=== PATIENT | female | born 1940 | race Caucasian/White ===

== ENCOUNTER → 2018-03-03 09:34 | Outpatient (CLI) | payer OTHER, SELFPAY ==
[2018-03-03 10:24] LABS: Alanine Aminotransferase 53 IU/L (9-52); Aspartate Aminotransferase 43 IU/L (14-36); BUN Creatinine Ratio 22.5 (6-22); Blood Urea Nitrogen 18 mg/dL (7-17); Calcium 9.4 mg/dL (8.4-10.2); Carbon Dioxide 32 mmol/L (22-32); Chloride 104 mmol/L (98-107); Cholesterol 310 mg/dL (140-199); Estimated Glomerular Filt Rate > 60.0 mL/min (>60); Glucose 95 mg/dL (80-110); HDL Cholesterol 60 mg/dL (40-60); HEMOLYSIS < 15 (0-50); LDL Cholesterol Calculated 208 mg/dL (<100); Potassium 4.6 mmol/L (3.4-5.1); Sodium 144 mmol/L (137-145); Triglycerides 211 mg/dL (35-150)
== END ==
PROVIDERS: PCP Internal Medicine; Visit Provider Internal Medicine
DX: Z00.00 Encounter for general adult medical examination without abnormal findings (principal); E78.5 Hyperlipidemia, unspecified
CPT/HCPCS: 36415; 80048; 80061; 84450; 84460

== ENCOUNTER → 2018-03-07 14:19 | Outpatient (CLI) | payer OTHER, SELFPAY | PROVIDERS: PCP Internal Medicine; Visit Provider Internal Medicine | DX: M85.852 Other specified disorders of bone density and structure, left thigh (principal); Z78.0 Asymptomatic menopausal state | CPT/HCPCS: 77080 ==

== ENCOUNTER → 2018-03-16 12:48 | Outpatient (CLI) | payer OTHER, SELFPAY ==
--- NOTE | 2018-03-16 | DI.CT.S_ITS ---
PROCEDURE: CT ANGIO CHEST PE PROTOCOL INDICATIONS: CHEST PAIN TECHNIQUE: After the administration of intravenous contrast, 2 mm thick sections acquired from the pulmonary apices to the posterior costophrenic angles. 3-dimensional maximum intensity projection (MIP) coronal and sagittal reformats were then acquired through the thorax. For radiation dose reduction, the following was used: automated exposure control, adjustment of mA and/or kV according to patient size. COMPARISON: [facility], CT, THORAX WITHOUT CONTRAST, 07/28/2017, 11:29. FINDINGS: Image quality: Excellent. Pulmonary arteries: Pulmonary arteries demonstrate no intraluminal filling defects to suggest central pulmonary embolism. Lungs and pleura: There is mild perihilar bronchiectasis with mild bronchial wall thickening. There is also associated new perihilar peribronchial groundglass opacities. Mild linear scarring is redemonstrated bilaterally in the lung bases. No acute focal consolidation. The trachea and central airways appear patent. No pleural effusions or pneumothorax. Mediastinum: Heart size is normal, without pericardial effusion. There are coronary arterial vascular calcifications. No mediastinal or hilar adenopathy. Thoracic aorta is normal in caliber and enhancement. Esophagus is normal in caliber, without hiatal hernia. Bones and chest wall: No suspicious bony lesions. Ribs and thoracic spine appear intact throughout. Thyroid gland demonstrates no discrete nodules. No axillary or supraclavicular adenopathy. Abdomen: Visualized upper abdominal solid organs appear normal in the early arterial phase of enhancement. IMPRESSION: 1. No evidence of pulmonary embolism. 2. Mild perihilar bronchial wall thickening and bronchiectasis with new associated mild glass opacities. The findings are compatible with a nonspecific infectious or inflammatory process including possible atypical pneumonia. Recommend short-term followup to demonstrate resolution following appropriate therapy. Dictated by: Andre Stokes M.D. on 03/16/2018 at 16:39 Approved by: Andre Stokes M.D. on 03/16/2018 at 16:44
== END ==
PROVIDERS: PCP Internal Medicine; Visit Provider Internal Medicine
DX: R07.9 Chest pain, unspecified (principal)
CPT/HCPCS: 71275; Q9967

== ENCOUNTER → 2018-06-08 15:46 | Outpatient (CLI) | payer OTHER, SELFPAY ==
[2018-06-08 16:23] LABS: Add Manual Diff / Slide Review NO; Basophils Percent Auto 0.9 % (0-2); Eosinophils Percent Auto 5.1 % (2-4); Hematocrit 37.6 % (36-46); Hemoglobin 12.6 g/dL (12.0-16.0); Lymphocytes Percent Auto 27.1 % (25-40); Mean Corpuscular HGB Conc 33.5 % (30-36); Mean Corpuscular Hemoglobin 32.4 PG (26-34); Mean Corpuscular Volume 96.6 fL (80-100); Monocytes Percent Auto 6.8 % (3-14); Neutrophils Absolute Auto 3900 /uL (1500-7000); Neutrophils Percent Auto 60.1 % (50-75); Platelet Count 224 X10^3/uL (150-400); Red Blood Cell Count 3.89 X10^6/uL (4.0-5.2); Red Cell Distribution Width 13.1 % (11.6-14.8); White Blood Cell Count 6.5 X10^3/uL (4.5-11.0)
[2018-06-10 19:08] LABS: Immunoglobulin E 1487 kU/L (< 115)
== END ==
PROVIDERS: PCP Internal Medicine; Visit Provider Internal Medicine
DX: R05 Cough (principal)
CPT/HCPCS: 36415; 82785; 85025

== ENCOUNTER 2018-10-27 12:29 | Emergency (ER) | payer OTHER, SELFPAY ==
[2018-10-27 12:41] VITALS: BP 148/89; PULSE 62; RESP 18; TEMP 36.1; O2SAT 93
--- NOTE | 2018-10-27 12:45 | DI.RAD.S_ITS ---
PROCEDURE: XR TIBIA FUBULA RT 2V INDICATIONS: injury TECHNIQUE: 2 views of the tibia and fibula were acquired. COMPARISON: None. FINDINGS: Bones: No fractures or dislocations. No suspicious bony lesions. Soft tissues: No suspicious soft tissue calcifications or masses. IMPRESSION: Normal for age, source of current pain after trauma symptoms is not seen. Dictated by: Sagar Sandhu M.D. on 10/27/2018 at 13:42 Approved by: Sagar Sandhu M.D. on 10/27/2018 at 13:42
--- NOTE | 2018-10-27 13:12 | PC.NURSE ---
pt called to see me. pt expressed she is disappointed in her wait time. I explained that I am sorry for her wait and i know she is in pain and that we are working as quickly as we can to treat her. at that moment Ghazal KENT arrived to take pt for her xray
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
--- NOTE | 2018-10-27 15:15 | DI.US.S_ITS ---
PROCEDURE: US PERIPH VENOUS LOW EXTREM RT INDICATIONS: BLUNT TRAUMA TO CALF, SIGNIFICANT SWELLING AND PAIN TECHNIQUE: Real-time imaging, as well as color and pulse Doppler interrogation, were performed of the lower extremity deep veins from the inguinal ligament to the popliteal fossa. COMPARISON: None. FINDINGS: The common femoral, femoral and popliteal veins are normally compressible, and free of intraluminal thrombus. Color and pulse Doppler demonstrate normal phasic intraluminal flow. There is normal augmentation response to distal compression maneuver. IMPRESSION: 1. No evidence of deep venous thrombosis in the right lower extremity. Dictated by: Andre Stokes M.D. on 10/27/2018 at 15:56 Approved by: Andre Stokes M.D. on 10/27/2018 at 15:56
[2018-10-27 16:18] VITALS: BP 157/76; PULSE 56; RESP 16; O2SAT 95
== END 2018-10-27 16:22 | disposition home or self-care (01) ==
PROVIDERS: Emergency Provider Nurse Practitioner; PCP Internal Medicine
DX: S80.11XA Contusion of right lower leg, initial encounter (principal); W20.8XXA Other cause of strike by thrown, projected or falling object, initial encounter
CPT/HCPCS: 73590; 93971; 99282; 99283

== ENCOUNTER → 2018-12-06 16:49 | Outpatient (CLI) | payer OTHER, SELFPAY ==
[2018-12-06 17:57] LABS: Add Manual Diff / Slide Review NO; Basophils Absolute Auto 0 /uL (0-100); Basophils Percent Auto 0.6 % (0-2); Eosinophils Absolute Auto 500 /uL (0-450); Hematocrit 40.5 % (36-46); Hemoglobin 13.7 g/dL (12.0-16.0); Lymphocytes Absolute Auto 1600 /uL (1100-4500); Lymphocytes Percent Auto 24.8 % (25-40); Mean Corpuscular HGB Conc 33.7 % (30-36); Mean Corpuscular Hemoglobin 32.8 PG (26-34); Mean Corpuscular Volume 97.1 fL (80-100); Monocytes Absolute Auto 700 /uL (0-900); Monocytes Percent Auto 11.2 % (3-14); Neutrophils Absolute Auto 3700 /uL (1500-7000); Neutrophils Percent Auto 56.4 % (50-75); Platelet Count 257 X10^3/uL (150-400); Red Blood Cell Count 4.17 X10^6/uL (4.0-5.2); Red Cell Distribution Width 13.3 % (11.6-14.8); White Blood Cell Count 6.6 X10^3/uL (4.5-11.0)
[2018-12-06 18:24] LABS: Alanine Aminotransferase 68 IU/L (9-52); Albumin 4.6 g/dL (3.5-5.0); Albumin Globulin Ratio 1.4 (1.0-2.8); Alkaline Phosphatase 60 U/L (38-126); Aspartate Aminotransferase 74 IU/L (14-36); BUN Creatinine Ratio 26.3 (6-22); Bilirubin Total 0.3 mg/dL (0.2-1.3); Blood Urea Nitrogen 21 mg/dL (7-17); Calcium 10.2 mg/dL (8.4-10.2); Carbon Dioxide 32 mmol/L (22-32); Chloride 103 mmol/L (98-107); Estimated Glomerular Filt Rate > 60.0 mL/min (>60); Globulin 3.2 g/dL (1.7-4.1); Glucose 101 mg/dL (80-110); HEMOLYSIS < 15 (0-50); Sodium 142 mmol/L (137-145); Total Protein 7.8 g/dL (6.3-8.2)
[2018-12-06 18:27] LABS: Potassium 5.8 mmol/L (3.4-5.1)
== END ==
PROVIDERS: PCP Family Medicine; Visit Provider Family Medicine
DX: K92.1 Melena (principal)
CPT/HCPCS: 36415; 80053; 85025

== ENCOUNTER 2018-12-25 07:26 | Day surgery (SDC) | payer OTHER, SELFPAY ==
[2018-12-25] VITALS (9 sets, daily range): BP systolic 130–157; BP diastolic 64–90; PULSE 50–62; RESP 15–17; TEMP 36.1–36.6; O2SAT 89–96; BMI 27.1
--- NOTE | 2018-12-25 | PATH_ITS ---
[facility] Accession Number: [id number] . 01 Material submitted: . PART A: gastrointestinal site - ANTRUM PART B: esophagus, E-G Junction - BIOPSY GE JUNCTION . 01 Clinical history: . A. BIOPSY FOR H. PYLORI . 02 Diagnosis: A. Antrum, Biopsy: Gastric antral mucosa with minimal chronic gastritis. No evidence of Helicobacter organisms on H/E stain. Negative for intestinal metaplasia, dysplasia or malignancy. . B. Gastroesophageal Junction, Biopsy: Squamocolumnar junctional mucosa with mild reactive features of reflux esophagitis. Negative for specialized intestinal metaplasia, dysplasia or malignancy. [facility]/12/26/2018 . 02 Electronically signed: . Yury Tolbert MD, PhD, Pathologist NPI- [id number] . 01 Gross description: . Part A: ANTRUM: Received in formalin are 2 fragment(s) of rodriguez, soft tissue measuring 0.1 x 0.1 x 0.1 cm to 0.2 x 0.1 x 0.1 cm which is entirely submitted and submitted entirely in 1 cassette(s) Part B: BIOPSY GE JUNCTION: Received in formalin are multiple fragment(s) of rodriguez, soft tissue measuring 0.1 x 0.1 x 0.1 cm to 0.2 x 0.2 x 0.2 cm which is entirely submitted and submitted entirely in 1 cassette(s) /DMC /DMC . 02 Pathologist provided ICD-10: R13.10, K21.9, K29.70 . 02 CPT . 278241, [id number] Performed at: [facility] [address] [place] [address] [address], [place], [place] [id number] MD Andre Sidhu MD Phone: [phone] Performed at: 02 [facility] [place] [address] [place] [id number] MD Jessica Xiong MD Phone: [phone]
[2018-12-25] MEDS: SODIUM CHLORIDE 0.9% 1,000 ML 200 ML IV (08:20)
--- NOTE | 2018-12-25 08:28 | PM.PREOP ---
Pre-operative Note Interval Note History & Physical reviewed/Exam performed by Physician: Yes Changes to H&P: No ASA Class (for procedural sedation): II
[2018-12-25] MEDS: LIDOCAINE 4% SOLN 50 ML 20 ML TOP (08:36)
[2018-12-25] MEDS: TETRACAINE/BENZOCAINE/BUTAMBEN (CETACAINE) BOTTLE 1 SPRAY TOP (08:36)
--- NOTE | 2018-12-25 08:38 | SUR.OPER ---
GLASSES IN LABELED BAG TO PACU WITH PATIENT
[2018-12-25] MEDS: MIDAZOLAM 5 MG/5 ML VIAL IV (08:42)
[2018-12-25] MEDS: fentaNYL 250 MCG/5 ML INJ IV (08:44)
--- NOTE | 2018-12-25 08:48 | PM.OP.ENDO ---
Operative Date/Time/Diagnoses Date of procedure: 12/25/18 Time of procedure: 08:48 Pre-op diagnosis: GERD Post-op diagnosis: same Procedure & Clinicians Study performed: EGD with biopsies Same procedure as scheduled: Yes Surgeon: Rachel Collins Procedure Notes SCOAP/Timeout: 835 Procedure in detail: After obtaining informed consent, the patient was brought to the GI suite and placed in the left lateral decubitus position on the examination table. After placement of appropriate monitors, the patient was given incremental doses of Versed and Fentanyl until an appropriate level of sedation was achieved. A time out was held per SCOAP protocol. A bite block was gently placed between the patient's teeth. The endoscope was lubricated and then passed into the patient's posterior oropharynx. The esophagus was cannulated under direct vision and the scope was passed to the second portion of the duodenum without difficulty. The scope was then withdrawn with careful examination of all areas of the upper GI tract and mucosa. In the stomach, the instrument was retroflexed and the GE junction examined. The scope was straightened and the procedure continued with examination of the remainder of the upper GI tract. Findings include diffuse chronic appearing gastritis noted by smoothed rugae and linear erosions. An antral biopsy is sent for H pylori testing. GEJ was noted to have a small area of salmon colored change, 1cm at maximum extent. Four quadrant biopsies were sent; spacing was difficult due to coughing by patient. In the mid and proximal esophagus, small white nodules are noted on the mucosa. Air was aspirated from the stomach and the endoscope gently removed from the esophagus. The patient was allowed to awaken from sedation without difficulty and taken to the post-anesthesia care unit in good condition. Scope withdrawal time: n/a Sedation minutes: 9 Findings: gastritis Specimen(s): other (1. Antrum biopsy for H pylori 2. GEJ biopsies for salmon colored changes) Complications: none Impression: 1. Gastritis- chronic, diffuse 2. 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 Mid and proximal esophageal mucosa with mild white nodular changes Recommendations: EGD in 3 years (pending path) and Continue medication(s) (take daily rather than prn as she is currently) Follow up: weeks Disposition: PACU
--- NOTE | 2018-12-25 10:05 | SUR.PHASEII ---
Dr. Collins notified regarding arythmia, EKG ordered and done.
--- NOTE | 2018-12-25 10:35 | SUR.PHASEII ---
Dr. Collins reviewed pt ekg reading at bedside. Per Dr. Collins ok for pt to be discharged to home at this time. Pt instructed to call pcp and make appt to follow up to discuss ekg from today. Pt voiced understanding.
--- NOTE | 2018-12-25 11:47 | PM.EVENT ---
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 Normal BP, breathing and speaking comfortably. Will review and plan for FU with PCP, pt told to call for appointment.
--- NOTE | 2018-12-25 11:48 | P.EN_ITS ---
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 Normal BP, breathing and speaking comfortably. Will review and plan for FU with PCP, pt told to call for appointment.
== END 2018-12-25 10:41 | disposition home or self-care (01) ==
PROVIDERS: PCP Family Medicine; Visit Provider Surgery
PROC: 0DJ08ZZ Inspection of Upper Intestinal Tract, Via Natural or Artificial Opening Endoscopic (ICD-10-PCS; CPT 43235; principal; 2018-12-25 08:45)
DX: K21.9 Gastro-esophageal reflux disease without esophagitis (principal); R13.10 Dysphagia, unspecified; K29.70 Gastritis, unspecified, without bleeding
CPT/HCPCS: 43239; 93005; J2250; J3010

== ENCOUNTER 2019-04-06 13:59 | Emergency (ER) | payer OTHER, SELFPAY ==
[2019-04-06 14:01] VITALS: BP 154/74; PULSE 68; RESP 16; TEMP 37.1; O2SAT 97; BMI 25.8
--- NOTE | 2019-04-06 14:03 | DI.RAD.S_ITS ---
PROCEDURE: XR WRIST RT MIN 3V INDICATIONS: fall onto right wrist TECHNIQUE: 4 views of the wrist were acquired. COMPARISON: None. FINDINGS: Bones: There is a comminuted, intra-articular fracture of the distal radial metaphysis. No suspicious bony lesions. There is moderate to severe first carpometacarpal joint degeneration. Scaphoid view: Scaphoid appears intact Soft tissues: No suspicious soft tissue calcifications. IMPRESSION: Comminuted intra-articular distal radial metaphyseal fracture. Dictated by: Noam Leavitt M.D. on 04/06/2019 at 15:06 Approved by: Noam Leavitt M.D. on 04/06/2019 at 15:07
--- NOTE | 2019-04-06 14:22 | PC.NURSE ---
Pt has pain and limited ROM
[2019-04-06] MEDS: IBUPROFEN 400 MG TABLET 800 MG PO (14:59)
[2019-04-06] MEDS: ACETAMINOPHEN 325 MG TABLET 650 MG PO (14:59)
--- NOTE | 2019-04-06 15:26 | ED.UPPEXIN ---
HPI - Extremity Injury (Upper) <YOHANNES Burns - Last Filed: 04/06/19 18:01> General Chief Complaint: Extremity Injury, Upper Stated Complaint: fell 'may have broken wrist' Time Seen by Provider: 04/06/19 14:05 Source: patient Mode of arrival: Ambulatory Limitations: no limitations History of Present Illness HPI narrative: This is a 78-year-old female, nonsmoker, who presents to ED with her spouse with chief complain of right wrist and distal ulna pain. She tripped and fall when she was coming down on a small stool in a shed, she states her foot got tangled and lost balance and she landed right on top of her right wrist/hand. Patient reports significant discomfort with movement of affected hand. Patient reports intact sensation. Right dominant hand. Patient denies skin injuries to this area and denies other injuries such as hitting her head. She denies pain in her right elbow or shoulder. She denies taking anticoagulants or platelets at this time. Related Data Previous Rx's Medication Instructions Recorded omeprazole 20 mg capsule,delayed 20 mg PO DAILY #90 cap 01/18/19 release hydrocodone-acetaminophen [[place]] 1 tab PO Q8H PRN #14 tab 04/06/19 Allergies Allergy/AdvReac Type Severity Reaction Status Date / Time No Known Drug Allergies Allergy Verified 04/06/19 14:03 Review of Systems <YOHANNES Burns - Last Filed: 04/06/19 18:01> Review of Systems Narrative: General: Denies fever, chills, fatigue, malaise, sweats. HEENT: Denies sinus pain, ear pain, sore throat, difficulty swallowing, dizziness. Respiratory: Denies dyspnea, cough, wheezing, hemoptysis, sputum. Cardiovascular: Denies chest pain, palpitations, orthopnea, edema. Gastrointestinal: Denies nausea, vomiting, abdominal pain, diarrhea, constipation, melena. : Denies dysuria, frequency, incontinence, hematuria, urinary retention. Musculoskeletal: See HPI Skin: Denies rash, skin lesions, or other. Neurologic: Denies weakness, headache, numbness, change in speech, confusion, seizures, incoordination. Psychiatric: No concerning psychosocial issues. 12-point review of systems is negative except for those stated above. Patient History <YOHANNES Burns - Last Filed: 04/06/19 18:01> Surgical History H/O left wrist surgery (Acute) Status post appendectomy Status post cholecystectomy Social History household members: spouse Smoking Status: Never smoker alcohol intake frequency: 0-2 drinks per day Substance Use Type: does not use Exam <YOHANNES Burns - Last Filed: 04/06/19 18:01> Narrative Exam Narrative: General appearance: well developed, well nourished, in no acute distress. Head: normocephalic, atraumatic, no scalp lesions, non-tender. Eye: pupil equal, round. EOMI. Nose: nares patent. Oral: mucosa moist. Neck/Thyroid: neck supple, full range of motion, no visible masses. Skin: no suspicious rashes, lesions over visible areas. Warm and dry. Heart: no clubbing, no cyanosis, no edema. Lungs: Breathing even and unlabored. No stridor. No accessory muscles used. Chest: normal shape and expansion. Abdomen: non-obese, non-distended. Neurologic: alert and oriented. Cognitive exam, METAL TESTER and PNS grossly intact on informal exam. Psych: good eye contact, normal affect. Initial Vital Signs Initial Vital Signs: Vital Signs Temperature 98.8 F 04/06/19 14:01 Pulse Rate 68 04/06/19 14:01 Respiratory Rate 16 04/06/19 14:01 Blood Pressure 154/74 H 04/06/19 14:01 Pulse Oximetry 97 04/06/19 14:01 Extrem Right upper extremity: shoulder/upper arm, elbow/forearm Details: normal to inspection and normal ROM, wrist Details: normal to inspection, tenderness Location: of the distal ulna and of the dorsal wrist, abnormal ROM Details: pain with active ROM during and pain with passive ROM during, radial pulse present and ulnar pulse present; no unusual warmth, no abrasions and no lacerations and hand Details: neuromotor exam normal, vascular exam Details: radial pulse present and normal capillary refill and normal ROM of fingers Left upper extremity: normal to inspection and full ROM <Nedra Barba DO - Last Filed: 04/07/19 07:31> Initial Vital Signs Initial Vital Signs: Vital Signs Temperature 98.8 F 04/06/19 14:01 Pulse Rate 68 04/06/19 14:01 Respiratory Rate 16 04/06/19 14:01 Blood Pressure 154/74 H 04/06/19 14:01 Pulse Oximetry 97 04/06/19 14:01 Procedures <YOHANNES Burns - Last Filed: 04/06/19 18:01> Orthopedic Splinting/Casting Injury #1: Side: right Upper Extremity Injury Location: wrist Upper Extremity Immobilizer: sling/shoulder immobilizer and volar splint Post splinting neuro exam: intact Post splinting vascular exam: intact Placed by: Nursing Scores <YOHANNES Burns - Last Filed: 04/06/19 18:01> GCS Alcova coma scale eye opening: Spontaneous Alcova coma scale verbal response: Orientated Alcova coma scale motor response: Obey commands Justine coma scale total score: 15 Nexus Score for C-Spine Focal Neurologic deficit present: No Midline spinal tenderness present: No Altered level of conciousness present: No Intoxication present: No Distracting Injury Present: Yes Nexus Criteria for C-spine: 1 Course <YOHANNES Burns - Last Filed: 04/06/19 18:01> Orders Ordered: Discontinued Medications Acetaminophen (Tylenol) 650 mg PO NOW ONE Stop: 04/06/19 14:48 Last Admin: 04/06/19 14:59 Dose: 650 mg Documented by: RAYMUNDO Hydrocodone Bitart/Acetaminophen ([place] 5/325) 1 tab PO NOW ONE Stop: 04/06/19 15:41 Last Admin: 04/06/19 15:44 Dose: 1 tab Documented by: TRUPTI Ibuprofen (Advil) 800 mg PO NOW ONE Stop: 04/06/19 14:48 Last Admin: 04/06/19 14:59 Dose: 800 mg Documented by: RAYMUNDO Vital Signs Vital signs: Vital Signs - 8 hr 04/06/19 14:01 04/06/19 16:05 Temperature 98.8 F Pulse Rate 68 68 Respiratory Rate 16 18 Blood Pressure 154/74 H Pulse Oximetry 97 98 <Nedra Barba DO - Last Filed: 04/07/19 07:31> Orders Ordered: Discontinued Medications Acetaminophen (Tylenol) 650 mg PO NOW ONE Stop: 04/06/19 14:48 Last Admin: 04/06/19 14:59 Dose: 650 mg Documented by: RAYMUNDO Hydrocodone Bitart/Acetaminophen ([place] 5/325) 1 tab PO NOW ONE Stop: 04/06/19 15:41 Last Admin: 04/06/19 15:44 Dose: 1 tab Documented by: TRUPTI Ibuprofen (Advil) 800 mg PO NOW ONE Stop: 04/06/19 14:48 Last Admin: 04/06/19 14:59 Dose: 800 mg Documented by: RAYMUNDO Vital Signs Vital signs: Vital Signs - 8 hr 04/06/19 14:01 04/06/19 16:05 Temperature 98.8 F Pulse Rate 68 68 Respiratory Rate 16 18 Blood Pressure 154/74 H Pulse Oximetry 97 98 MDM - Extremity Injury (Upper) <YOHANNES Burns - Last Filed: 04/06/19 18:01> Differential Diagnosis Differential diagnosis: Likely sprain and strain of wrist, fracture of wrist and other (Fracture of distal ulna, sprain of forearm, sprain of wrist) Medical Records Attestation: I reviewed the patient's medical records. Imaging Data XR-Wrist RT: Radiologist's impression: [place] [address] XRay Report Signed Patient: Jennifer Chaudhry EMR#: [id number] : 1Acct:[id number] Age/Sex: 78 / FDate of Service: 04/06/19 Loc: ED Accession Number: [id number] Procedure: XR wrist RT min 3V Ordering Provider: Nedra Barba D.O. PROCEDURE: XR WRIST RT MIN 3V INDICATIONS: fall onto right wrist TECHNIQUE: 4 views of the wrist were acquired. COMPARISON: None. FINDINGS: Bones: There is a comminuted, intra-articular fracture of the distal radial metaphysis. No suspicious bony lesions. There is moderate to severe first carpometacarpal joint degeneration. Scaphoid view: Scaphoid appears intact Soft tissues: No suspicious soft tissue calcifications. IMPRESSION: Comminuted intra-articular distal radial metaphyseal fracture. Dictated by: Noam Leavitt M.D. on 04/06/2019 at 15:06 Approved by: Noam Leavitt M.D. on 04/06/2019 at 15:07 [facility] Narrative Medical decision making narrative: This is a 78 year female who had sustain a right wrist/distal ulna injury after she sustained a fall after her foot got tangled and lost balance. She denies other injuries or hitting her head. Patient had decreased active and passive range of motion due to discomfort. Radial pulse is intact with brief cap refills on right hand. Patient had intact sensation for light touch. X-ray test shows communited intra-articular distal radial metaphyseal fracture and affected arm was splinted with a volar Orthoglass splint. Post splint neurovascular exam was intact. Patient advised RICE therapy. Patient was medicated with Tylenol, Motrin, 1 Mendham while in ED and was able to tolerate splint procedure. Patient discharged to home with same medications. Patient advised to contact [facility] orthopedist to follow up with her fracture and treatment. Patient verbalized understanding and no questions expressed at this time and agrees with the treatment plan. Patient states she was leaving for cruise travel on Tuesday to [place] which she is going to cancel and to follow up with orthopedist. Discharge Plan Departure Patient Disposition: Home Clinical Impression: Fracture of wrist, closed Qualifiers: Encounter type: initial encounter Laterality: right Qualified Code(s): S62.101A - Fracture of unspecified carpal bone, right wrist, initial encounter for closed fracture Discharge Date/Time: 04/06/19 16:06 Instructions: DI for Wrist Fracture Activity Restrictions/Additional Instructions: You have been diagnosed with [right wrist comminuted, intra-articular fracture of the distal radial metaphysis according to the xray test today. Your arm/wrist has been splinted on Ortho Glass. Please elevate affected arm above chest level during rest and use a sling that has been provided to you and use ice pack for next 48 hours. Please do not get wet your splint and keep it on all time]. What to do: *Take your medications as directed. Mendham may cause drowsiness so please do not drive, drink alcohol, or operate any heavy equipments while you are taking this medication for severe pain. Otherwise you can take [id number] Tylenol and or Motrin as needed for discomfort. You can take up to 4000 mg of Tylenol in 24 hour period. Motrin 4-600 mg 3 times a day with food. Mendham could cause constipation so please increase water intake, high-fiber diet, or add [id number] stool softener. *Follow up with your primary care provider in 2-3 days, call for an appointment and [facility]. Let them know you were seen in the ED and that we asked you to be seen in follow up. *Return to ED if you have any new, worsening, or concerning symptoms, such as [tingling, numbness, weakness to affected arm, severe pain, chest pain, breathing difficulty, or any acute concerns]. Prescriptions: New hydrocodone-acetaminophen [[place]ham] 5-325 mg tablet 1 tab PO Q8H PRN (Reason: pain) Qty: 14 RF: 0 No Action omeprazole 20 mg capsule,delayed release(DR/EC) 20 mg PO DAILY Qty: 90 RF: 0 Referrals: [facility] [Provider Group] Renetta Miranda DO [Primary Care Provider] -
[2019-04-06] MEDS: HYDROCODONE/ACET 5/325 TABLET 1 TAB PO (15:44)
[2019-04-06 16:05] VITALS: PULSE 68; RESP 18; O2SAT 98
== END 2019-04-06 16:06 | disposition home or self-care (01) ==
PROVIDERS: Emergency Provider Nurse Practitioner Family; PCP Family Medicine
DX: S62.101A Fracture of unspecified carpal bone, right wrist, initial encounter for closed fracture (principal); W01.0XXA Fall on same level from slipping, tripping and stumbling without subsequent striking against object, initial encounter
CPT/HCPCS: 29125; 73110; 99283

== ENCOUNTER 2019-06-02 14:13 | Observation (INO) | payer OTHER, SELFPAY ==
[2019-06-02] VITALS (14 sets, daily range): BP systolic 139–219; BP diastolic 60–95; PULSE 60–77; RESP 16–22; TEMP 36.3–36.8; O2SAT 94–98; BMI 26.6
--- NOTE | 2019-06-02 14:21 | ED_ITS ---
HPI - Neuro Symptoms/Deficit General Chief Complaint: Neuro Symptoms/Deficit Stated Complaint: poss stroke Time Seen by Provider: 06/02/19 14:15 Source: patient Mode of arrival: Wheelchair Limitations: no limitations History of Present Illness HPI Narrative: Patient is a 78-year-old female who presents with speech d ifficulty now resolved. She was at lunch with her who noticed that approximately 30 minutes prior to arrival she had difficulty speaking he did not understand her there was no facial droop there is no weakness numbness or tingling. Symptoms lasted until she got to the emergency department which have now completely cleared. No prior history of TIA or stroke. She now is having headache. Onset (ago): minute(s) Timing confirmed by: spouse Location: speech History of same: No Severity: mild Related Data Previous Rx's Medication Instructions Recorded omeprazole 20 mg capsule,delayed 20 mg PO DAILY #90 cap 01/18/19 release hydrocodone-acetaminophen [[place]] 1 tab PO Q8H PRN #14 tab 04/06/19 Allergies Allergy/AdvReac Type Severity Reaction Status Date / Time No Known Drug Allergies Allergy Verified 06/02/19 14:23 Review of Systems Review of Systems Narrative: GENERAL: Denies chills, fatigue, malaise, fever, sweats, travel HEENT: Denies sinus pain, ear pain, sore throat, difficulty swallowing, neck pain RESPIRATORY: Denies dyspnea, cough, wheezing, hemoptysis, sputum. CARDIOVASCULAR: Denies chest pain, palpitations, orthopnea, edema GASTROINTESTINAL: Denies nausea, vomiting, abdominal pain, diarrhea, constipation, melena. : Denies dysuria, frequency, incontinence, hematuria, urinary retention, flank pain. MUSCULOSKELETAL: Denies weakness, joint pain, or bony pain SKIN: No rash, no erythema, no pruritus NEUROLOGIC: See HPI PSYCHIATRIC: No concerning psychosocial issues. 12 point review of systems is negative except for those stated above and HPI Patient History Medical History Borderline 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) Gastritis (Acute) Surgical History H/O left wrist surgery (Acute) Status post appendectomy Status post cholecystectomy Social History household members: spouse Smoking Status: Never smoker Smoking Status: Never smoker alcohol intake frequency: 0-2 drinks per day Substance Use Type: does not use Exam Initial Vital Signs Initial Vital Signs: Vital Signs Pulse Rate 75 06/02/19 14:20 Respiratory Rate 18 06/02/19 14:20 Blood Pressure 178/62 H 06/02/19 14:20 Pulse Oximetry 97 06/02/19 14:20 GENERAL: Well-appearing, well-nourished and in no acute distress. HEENT: Head atraumatic,EOMI, pupils reactive, face symmetric, moist mucous membranes CARDIOVASCULAR: Regular rate and rhythm without murmurs, rubs or gallops. RESPIRATORY: Breath sounds equal bilaterally, no wheezes rales or rhonchi. ABDOMEN: Soft, nontender. Normoactive bowel sounds all 4 quadrants. No guarding or rebound. EXTREMITIES: Normal range of motion, no clubbing or edema. Neurovascularly intact NEUROLOGICAL: Alert and oriented x4.Normal gait and speech. Cranial nerves II through XII grossly intact. Good [id number]-dj-nhra, good brig-pn-pzan, strength equal bilaterally, no dysarthria or aphasia, sensation in tact to soft touch bilaterally, no visual changes, no facial droop SKIN: Warm, dry, no laceration, no petechiae, no rashes or lesions. Scores NIH Stroke Scale Level of Conciousness: Alert, keenly responsive Ask month/age: Answers both questions correctly. Open/close eyes, close hand: Performs both tasks correctly Best gaze horizontal: Normal Visual nichols: No visual loss Facial palsy: Normal symetrical movement Left arm drift: No drift for full 10 sec Right arm drift: No drift for full 10 sec Left leg drift: No drift for full 10 sec Right leg drift: No drift for full 10 sec Limb ataxia: Absent Sensory on face/arms/legs: Normal, no sensory loss Best language: No aphasia, normal Dysarthria: Normal Extinction or inattention: No abnormality Total NIH Stroke scale score: 0 Course Orders Ordered: ED Orders 06/02/19 14:21 CT head/brain wo con Stat EKG-12 Lead Stat 06/02/19 14:38 Complete Blood Count AUTO DIFF Stat Comprehensive Metabolic Panel Stat Partial Thromboplastin Time Stat Prothrombin Time INR Stat Troponin & CK Cardiac Panel Stat Sodium Chloride (Normal Saline 0.9%) 1,000 mls @ 150 mls/hr IV CONT EDUIN Last Admin: 06/02/19 16:05 Dose: 150 mls/hr Documented by: ERIN Discontinued Medications Acetaminophen (Tylenol) 975 mg PO NOW ONE Stop: 06/02/19 16:39 Aspirin (Aspirin Chew) 324 mg PO NOW ONE Stop: 06/02/19 15:29 Last Admin: 06/02/19 16:05 Dose: 324 mg Documented by: ERIN Labetalol HCl (Trandate) 10 mg IV NOW ONE Stop: 06/02/19 16:45 Vital Signs Vital signs: Vital Signs - 8 hr 06/02/19 14:20 06/02/19 16:04 06/02/19 16:30 Pulse Rate 75 64 68 Respiratory Rate 18 19 20 Blood Pressure 178/62 H Blood Pressure [Left Arm] 193/83 H 209/95 H Pulse Oximetry 97 98 97 MDM - Neuro Symptoms/Deficit Lab Data Attestation: I reviewed the patient's lab results. Result diagrams: 06/02/19 14:38 06/02/19 14:38 Labs: Lab Results 06/02/19 06/02/19 06/02/19 Range/Units 14:38 14:38 14:38 WBC 6.5 (4.5-11.0) X10^3/uL RBC 4.02 (4.0-5.2) X10^6/uL Hgb 13.4 (12.0-16.0) g/dL Hct 39.4 (36-46) % MCV 98.1 (80-100) fL MCH 33.4 (26-34) PG MCHC 34.0 (30-36) % RDW 13.4 (11.6-14.8) % Plt Count 233 (150-400) X10^3/uL Neut % (Auto) 59.1 (50-75) % Lymph % (Auto) 26.7 (25-40) % Chambers % (Auto) 7.3 (3-14) % Eos % (Auto) 6.2 H (2-4) % Baso % (Auto) 0.7 (0-2) % Neut # (Auto) 3900 (9700-4484) /uL Lymph # (Auto) 1700 (0000-1177) /uL Chambers # (Auto) 500 (0-900) /uL Eos # (Auto) 400 (0-450) /uL Baso # (Auto) 0 (0-100) /uL PT 11.5 (10.1-12.7) SECONDS INR 1.0 (0.9-1.3) APTT 30 (26.4-36.2) SECONDS Sodium 141 (137-145) mmol/L Potassium 4.0 (3.4-5.1) mmol/L Chloride 103 (98-107) mmol/L Carbon Dioxide 29 (22-32) mmol/L BUN 20 H (7-17) mg/dL Creatinine 0.70 (0.52-1.04) mg/dL Estimated GFR > 60.0 (>60) mL/min BUN/Creatinine Ratio 28.6 H (6-22) Glucose 122 H (80-110) mg/dL Calcium 9.8 (8.4-10.2) mg/dL Total Bilirubin 0.5 (0.2-1.3) mg/dL AST 111 H (14-36) IU/L ALT 134 H (<35) IU/L Alkaline Phosphatase 68 (38-126) U/L Total Creatine Kinase 206 H (30-135) U/L CK-MB (CK-2) 3.88 H (<2.37) ng/mL CK-MB (CK-2) Rel Index 1.9 (1.5-5.0) % Troponin I < 0.012 (0.01-0.034) ng/mL Total Protein 7.8 (6.3-8.2) g/dL Albumin 4.8 (3.5-5.0) g/dL Globulin 3.0 (1.7-4.1) g/dL Albumin/Globulin Ratio 1.6 (1.0-2.8) Point of Care Testing Glucose POC [address] scan - head: Radiologist's Impression: PROCEDURE: CT HEAD/BRAIN WO CON INDICATIONS: speech difficulty now resolved TECHNIQUE: Noncontrast 4.5 mm thick angled axial sections acquired from the foramen magnum to the vertex, with coronal and sagittal reformats. For radiation dose reduction, the following was used: automated exposure control, adjustment of mA and/or kV according to patient size. COMPARISON: None. FINDINGS: Image quality: Excellent. CSF spaces: Basal cisterns are patent. No extra-axial fluid collections. The ventricles are symmetric in size and shape. Brain: No intracranial bleeds or masses. There is cerebral volume loss for age, with resultant ventricular and sulcal prominence. There are periventricular and deep white matter chronic small vessel ischemic changes. There is intracranial internal carotid artery atherosclerosis. Skull and face: Calvarium and visualized facial bones appear intact, without suspicious lesions. Sinuses: Visualized sinuses and mastoids are clear. IMPRESSION: No CT evidence of acute intracranial pathology. Diffuse atrophy and mild to moderate chronic small vessel ischemic changes. Dictated by: Adrián Finn M.D. on 06/02/2019 at 15:06 ECG Data Attestation: I personally reviewed and interpreted this ECG as follows: Prior ECG tracings: available for review Interpretation: Normal sinus rhythm rate 60 p.r. interval 173 QRS [address] elevation depression or T-wave inversion MDM Narrative Medical decision making narrative: Patient's symptoms have completely resolved here in the emergency department however she continued to have the. She was given aspirin after negative head CT. Her blood pressure is noted to be elevated continues to rise in the emergency department which may be contributing her headache. She is given 1 dose of labetalol. Discussed case with Dr. Brice who agrees with observation for TIA. Patient is noted to have mildly elevated liver enzymes slightly more than her baseline. She has no right upper quadrant pain normal bilirubin. At this time no indication for his imaging. Discharge Plan Departure Patient Disposition: Admitted as Observation Clinical Impression: Brain TIA Admit Date/Time: 06/02/19 16:49 Admit Provider: Leighann Brice
[2019-06-02 15:35] LABS: Add Manual Diff / Slide Review NO; Basophils Absolute Auto 0 /uL (0-100); Basophils Percent Auto 0.7 % (0-2); Eosinophils Absolute Auto 400 /uL (0-450); Eosinophils Percent Auto 6.2 % (2-4); Hematocrit 39.4 % (36-46); Hemoglobin 13.4 g/dL (12.0-16.0); Lymphocytes Absolute Auto 1700 /uL (1100-4500); Lymphocytes Percent Auto 26.7 % (25-40); Mean Corpuscular Hemoglobin 33.4 PG (26-34); Mean Corpuscular Volume 98.1 fL (80-100); Monocytes Absolute Auto 500 /uL (0-900); Monocytes Percent Auto 7.3 % (3-14); Neutrophils Absolute Auto 3900 /uL (1500-7000); Neutrophils Percent Auto 59.1 % (50-75); Platelet Count 233 X10^3/uL (150-400); Red Blood Cell Count 4.02 X10^6/uL (4.0-5.2); Red Cell Distribution Width 13.4 % (11.6-14.8); White Blood Cell Count 6.5 X10^3/uL (4.5-11.0)
[2019-06-02 15:50] LABS: Prothrombin Time 11.5 SECONDS (10.1-12.7)
[2019-06-02 15:52] LABS: PTT Partial Thromboplastin Tim 30 SECONDS (26.4-36.2)
[2019-06-02 15:54] LABS: Alanine Aminotransferase 134 IU/L (<35); Albumin 4.8 g/dL (3.5-5.0); Albumin Globulin Ratio 1.6 (1.0-2.8); Alkaline Phosphatase 68 U/L (38-126); Aspartate Aminotransferase 111 IU/L (14-36); BUN Creatinine Ratio 28.6 (6-22); Bilirubin Total 0.5 mg/dL (0.2-1.3); Blood Urea Nitrogen 20 mg/dL (7-17); Calcium 9.8 mg/dL (8.4-10.2); Carbon Dioxide 29 mmol/L (22-32); Chloride 103 mmol/L (98-107); Creatine Kinase 206 U/L (30-135); Estimated Glomerular Filt Rate > 60.0 mL/min (>60); Glucose 122 mg/dL (80-110); HEMOLYSIS < 15 (0-50); Sodium 141 mmol/L (137-145); Total Protein 7.8 g/dL (6.3-8.2)
[2019-06-02] MEDS: SODIUM CHLORIDE 0.9% 1,000 ML 150 ML IV (16:05)
[2019-06-02] MEDS: ASPIRIN 81 MG CHEW TAB 324 MG PO (16:05)
[2019-06-02 16:06] LABS: Troponin I < 0.012 ng/mL (0.01-0.034)
[2019-06-02 16:09] LABS: CKMB % Relative Index 1.9 % (1.5-5.0); Creatine Kinase MB 3.88 ng/mL (<2.37)
[2019-06-02] MEDS: ACETAMINOPHEN 325 MG TABLET 975 MG PO (16:45)
[2019-06-02] MEDS: LABETALOL 20 MG/4 ML SYRINGE 10 MG IV (17:14)
--- NOTE | 2019-06-02 17:52 | P.HP_ITS ---
History of Present Illness History of Present Illness Date Patient Seen: 06/02/19 Time Patient Seen: 17:15 Chief complaint: poss stroke Narrative: 78 year old woman with GERD who presented with difficulty speaking. The pt reports that earlier this morning she found it slightly difficult to find the words to speak. When at lunch with her later in the day, she was unable to clearly verbalize at all. She states that she knew what she wanted to say, but wasn't able to say it. She denies any associated focal weakness or facial droop. This lasted for around 30 minutes and then self-resolved. She then developed a very severe headache that persisted. Due to the headache, she decided to come to the ED for evaluation. The pt denies ever having similar symptoms in the past. She denies any recent chest pain, shortness of breath. She has overall been feeling well prior this episode. She has no history of migraines. She denies any history of hype rtension. She had been on a statin several years ago, but frequently forgot to take it, and so then stopped entirely. Patient History Medical History Borderline 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) Gastritis (Acute) Surgical History H/O left wrist surgery (Acute) Status post appendectomy Status post cholecystectomy Family & Social History Social History: household members spouse Safety & Behavioral: Feels Safe in Current Yes Environment Been Physically Hurt or No Threatened By a Person Tobacco & Substance use: Smoking Status Never smoker alcohol intake frequency 0-2 drinks per day Substance Use Type does not use Meds Home Medications and Allergies Home Medications Medication Instructions Recorded Confirmed Type omeprazole 20 mg capsule,delayed 20 mg PO DAILY #90 cap 01/18/19 06/02/19 Rx release acetaminophen [Tylenol] 650 mg PO 1-2XD PRN 06/02/19 06/02/19 History ibuprofen 200 mg PO 1-2XD PRN 06/02/19 06/02/19 History Allergies Allergy/AdvReac Type Severity Reaction Status Date / Time No Known Drug Allergies Allergy Verified 06/02/19 14:23 Review of Systems Constitutional Constitutional: Denies fatigue, Denies fever(s), Reports headache(s), Denies night sweats and Denies weakness Eyes Eyes: Denies loss of vision ENT Ears, Nose, Mouth, and Throat: No dizziness and Yes headache(s) Cardiovascular Cardiovascular: Denies chest pain, Denies generalize swelling, Denies rapid, pounding, or irregular heartbeat and Denies shortness of breath Respiratory Respiratory: Denies cough, Denies dyspnea and Denies wheezing Gastrointestinal Gastrointestinal: Denies abdominal pain, Denies constipation, Denies loose stools and Denies nausea Genitourinary Genitourinary: Denies urinary frequency and Denies urinary urgency Musculoskeletal Musculoskeletal: Denies numbness Neurologic Neurologic: Reports abnormal speech, Denies confusion, Denies dizziness, Reports headache(s), Denies lack of coordination, Denies loss of vision, Denies memory loss, Denies numbness and Denies weakness Psychiatric Psychiatric: Denies confusion and Denies memory loss Endocrine Endocrine: Denies fatigue and Denies palpitations Allergic/Immunologic Allergic/Immunologic: Denies wheezing Exam Vital Signs (past 8 hours): - 06/02/19 14:20 06/02/19 16:04 06/02/19 16:30 Pulse Rate 75 64 68 Respiratory Rate 18 19 20 Blood Pressure 178/62 H Blood Pressure [Left Arm] 193/83 H 209/95 H Pulse Oximetry 97 98 97 06/02/19 17:00 06/02/19 17:10 06/02/19 17:14 Pulse Rate 69 68 77 Respiratory Rate 20 16 Blood Pressure 219/74 H Blood Pressure [Left Arm] 219/74 H 139/66 Pulse Oximetry 96 98 06/02/19 17:30 Pulse Rate 63 Respiratory Rate 22 Blood Pressure Blood Pressure [Left Arm] 181/73 H Pulse Oximetry 94 Oxygen Delivery Method Room Air Narrative Exam Narrative: GEN - alert, cooperative and no distress, speaking clearly, appears well HEENT - normocephalic and atraumatic, sclera white, moist mucus membranes NECK - FROM, no adenopathy, no JVD HEART - RRR, S1, S2 normal, no S3 or S4, grade 3/6 systolic murmur LUNGS - symmetric chest rise, no accessory muscles, clear to auscultation bilaterally ABD - flat, nondistended, normal bowel sounds, soft, nontender and no hepatomegaly, splenomegaly or masses EXT - no cyanosis, clubbing or edema SKIN - no rashes or suspicious lesions NEURO - alert and and oriented to person, place and situation, Muscle strength is 5/5 UE and LE flexors/extensors, Sensation to light touch present bilaterall y, Coordination shows finger to nose, heel to tuttle, and arm roll normal bilaterally. gait not assessed. CN intact, Objective Labs Result Diagrams: 06/02/19 14:38 06/02/19 14:38 Labs: Laboratory Results - last 24 hr 06/02/19 06/02/19 06/02/19 14:38 14:38 14:38 WBC 6.5 RBC 4.02 Hgb 13.4 Hct 39.4 MCV 98.1 MCH 33.4 MCHC 34.0 RDW 13.4 Plt Count 233 Neut % (Auto) 59.1 Lymph % (Auto) 26.7 Rutherford % (Auto) 7.3 Eos % (Auto) 6.2 H Baso % (Auto) 0.7 Neut # (Auto) 3900 Lymph # (Auto) 1700 Rutherford # (Auto) 500 Eos # (Auto) 400 Baso # (Auto) 0 PT 11.5 INR 1.0 APTT 30 Sodium 141 Potassium 4.0 Chloride 103 Carbon Dioxide 29 BUN 20 H Creatinine 0.70 Estimated GFR > 60.0 BUN/Creatinine Ratio 28.6 H Glucose 122 H Calcium 9.8 Total Bilirubin 0.5 AST 111 H ALT 134 H Alkaline Phosphatase 68 Total Creatine Kinase 206 H CK-MB (CK-2) 3.88 H CK-MB (CK-2) Rel Index 1.9 Troponin I < 0.012 Total Protein 7.8 Albumin 4.8 Globulin 3.0 Albumin/Globulin Ratio 1.6 Assessment & Plan Assessment & Plan narrative: 78 year old woman with GERD who presented with approximately 30 minutes of expressive aphasia, followed by severe headache. No residual deficits. Pts BP in the ED was found to be significantly elevated. Concern for TIA. 1) TIA: Head CT negative in the ED. - Received Aspirin in the ED - Echocardiogram tomorrow - MRI stroke protocol tomorrow - If unable to obtain MRI tomorrow, will complete carotid dopplers 2) Hypertension: - s/p IV Labetalol 10mg in the ED. Monitor BPs closely. - Metoprolol XR 25mg - Hydralazine PRN for systolic BP > 160, diastolic BP > 120 - TSH 3) Hypercholesterolemia: Noted on prior lipid panels, last in 2018 - Start Atorvastatin 40mg daily - Lipid panel in the AM 4) GERD: - Continue home Omeprazole 5) Wrist fracture: - Continue home PRN narcotics for wrist pain 6) Elevated liver enzymes: Have been consistently mildly elevated - Hepatitis panel - Continue to trend FEN: Cardiac diet DVT: Lovenox Code: Full Dispo: Admitted under observation status. Plan for d/c tomorrow pending stabilization of BP. Pt requests d/c tomorrow likely even if studies not yet completed as her has health issues and she wants to be home with him. Scores GCS Justine coma scale eye opening: Spontaneous Justine coma scale verbal response: Orientated Glidden coma scale motor response: Obey commands Glidden coma scale total score: 15 NIHSS Level of Conciousness: Alert, keenly responsive Ask month/age: Answers both questions correctly. Open/close eyes, close hand: Performs both tasks correctly Best gaze horizontal: Normal Visual nichols: No visual loss Facial palsy: Normal symetrical movement Left arm drift: No drift for full 10 sec Right arm drift: No drift for full 10 sec Left leg drift: No drift for full 5 sec Right leg drift: No drift for full 5 sec Limb ataxia: Absent Sensory on face/arms/legs: Normal, no sensory loss Best language: No aphasia, normal Dysarthria: Normal Extinction or inattention: No abnormality Total NIH Stroke scale score: 0
--- NOTE | 2019-06-02 18:28 | DI.ECHO.S_ITS ---
[facility] +---------+ [facility] +---------+ : : [address] : : : : [id number] : : : : Phone: [phone] Echocardiogram Report + + :Name: CHAD MCCRAY Study Date: 06/03/2019 Height: 65 in : :Hospital Weight: 160 lb: : Gender: Female BSA: 1.8 m2 : :: 1940 Age: 78 yrs : :Reason For Study: TIA : :Ordering Physician: [place] : :Hospitalist Performed By: Remington Valdivia : :Referring: OMARI OLMSTEAD : + + Interpretation Summary The left ventricle is mildly hyperdynamic with the ejection fraction visually estimated to be 70-75%. There are no obvious focal wall motion abnormalities noted but poor endocardial definition reduces the sensitivity for the detection of such. There is mild concentric left ventricular hypertrophy and the left ventricular cavity is small. Diastolic parameters suggest probable normal left ventricular diastolic function and normal filling pressures. The right ventricle grossly appears normal in size with probable normal systolic function. Pulmonary artery pressures cannot be estimated because of the lack of a measurable TR jet velocity but the IVC suggests a CVP of around 3 mmHg. Both atria are normal in size. There is no significant valvular heart disease. The ascending aorta is mildly enlarged. Procedure: A two-dimensional transthoracic echocardiogram with color flow and Doppler was performed. The study quality was technically difficult. There is no prior echocardiogram noted for this patient. The patient was in sinus bradycardia with heart rates between 56-60 bpm during the exam. Left Ventricle: The left ventricular cavity is small. There is mild concentric left ventricular hypertrophy. The left ventricle is mildly hyperdynamic. The ejection fraction is estimated to be 70-75%. There are no obvious focal wall motion abnormalities noted but poor endocardial definition reduces the sensitivity for the detection of such. Diastolic parameters suggest probable normal left ventricular diastolic function and normal filling pressures. Right Ventricle: The right ventricle grossly appears normal in size with probable normal systolic function. Atria: Both atria are normal in size. There is no Doppler evidence for an atrial septal defect. Mitral Valve: There is mild mitral annular calcification. The mitral valve leaflets appear borderline thickened, but open well. There is trace mitral regurgitation. Aortic Valve: The aortic valve is grossly normal. The aortic valve is slightly calcified. The aortic valve opens well. No aortic regurgitation is present. Tricuspid Valve: The tricuspid valve is not well visualized. There is a trace or physiologic amount of tricuspid regurgitation. Pulmonary artery pressures cannot be estimated because of the lack of a measurable TR jet velocity but the IVC suggests a CVP of around 3 mmHg. Pulmonic Valve: The pulmonic valve is not well visualized. There is a trace or physiologic amount of pulmonic regurgitation. There is no significant valvular heart disease. Great Vessels: The aortic root is normal size. The ascending aorta is mildly enlarged. The pulmonary is not well visualized. The IVC is of normal diameter and collapses greater than 50% with a sniff. This suggests a low right atrial pressure of 3 mm Hg. Pericardium/ Pleura There is no pericardial effusion. There is no pleural effusion. MMode/2D Measurements & Calculations LVIDd: 3.1 cm asc Aorta Diam: 3.4 cm IVSd: 1.3 cm Ao Arch Diam (Prox Trans): 2.2 cm LVPWd: 0.98 cm LV philip. diameter/BSA (cm/m^2): 1.7 LA A2 area: 15.2 cm2 TAPSE: 2.1 cm LA A4 area: 13.9 cm2 LA length (vol): 4.1 cm LA vol: 43.9 ml LA vol index: 24.4 ml/m2 Doppler Measurements & Calculations Ao V2 max: 243.1 cm/sec LVOT Max Glenroy: 132.7 cm/sec Ao V2 mean: 174.0 cm/sec LV V1 max P.0 mmHg Ao max P.6 mmHg LV V1 VTI: 29.1 cm Ao mean P.1 mmHg sev ratio: 0.55 Ao V2 VTI: 53.1 cm MV E max glenroy: 52.6 cm/sec TR max glenroy: 223.9 cm/sec MV A max glenroy: 63.2 cm/sec TR max P.0 mmHg MV E/A: 0.83 Med Peak E' Glenroy: 5.6 cm/sec E/E' med: 9.4 Lat Peak E' Glenroy: 7.4 cm/sec E/E' lat: 7.1 E/e' average: 8.3 MV dec time: 0.26 sec Reading Physician:PM
--- NOTE | 2019-06-02 18:28 | DI.MRI.S_ITS ---
PROCEDURE: MR STROKE Pre- and post-contrast brain MRI, non-contrast brain MR angiogram, pre- and postcontrast neck MR angiogram INDICATIONS: TIA TECHNIQUE: Brain: Noncontrast axial T1 spin echo, axial T2 fast spin echo, sagittal and axial FLAIR, coronal T2 fast spin echo, axial gradient echo, axial diffusion and ADC through the brain. After the administration of contrast, axial 3D VIBE of the cranial vasculature and brain. Brain MRA: Non-contrast 3-D time of flight MR angiogram, with multiple uqyskra-iunfswska-gtwpnhkhpk (MIP) reformats performed. Neck MRA: Axial and sagittal TruFISP through the neck. Coronal dynamic MR angiogram during administration of contrast in the arterial and venous phases, with 3-dimenstional vfqhobe-fjzmeizaf-uscymysjmp (MIP) reformats constructed from subtraction images. COMPARISON: [facility], CT, CT HEAD/BRAIN WO CON, 06/02/2019, 14:29. FINDINGS: Image quality: Excellent. BRAIN: CSF spaces: Ventricles are normal in size and shape. Basal cisterns are patent. No extra-axial fluid collections. Brain: No intracranial bleeds or mass effects. Mg-white matter interface is normal. Diffusion weighted images show no acute ischemic insults. Brainstem appears normal. Normal intravascular flow voids are present. No abnormal intracranial enhancement. Skull and face: Calvarial marrow signal is normal. Orbits appear normal. Sinuses: Sinuses and mastoids are clear. BRAIN MR ANGIOGRAM: Anterior circulation: Intracranial internal carotid arteries are normal in size and enhancement. The flow within the paired anterior cerebral arteries is normal and symmetric. Incidental note is made of an early bifurcation of the left anterior cerebral artery. The flow within the middle cerebral arteries is normal and symmetric. The anterior communicating artery is seen. No stenoses, occlusions, or aneurysms. Posterior circulation: The visualized portions of the vertebral arteries demonstrate normal caliber, and join to form a normal appearing basilar artery. The flow within the posterior cerebral arteries is normal and symmetric. No stenoses, occlusions, or aneurysms. NECK MR ANGIOGRAM: Carotids: Great vessels demonstrate a conventional anatomy as they arise from the aortic arch. The origins of the common carotid arteries appear patent. The calibers and courses of both common carotid arteries are normal. The bifurcation regions appear normal bilaterally. The internal carotid arteries demonstrate normal course and caliber. Posterior circulation: The origins of the vertebral arteries are not well-seen. More superior portions of both vertebral arteries demonstrate normal course and caliber, and join to form a normal appearing basilar artery. Miscellaneous: Subclavian arteries appear patent. Pre-contrast images through the neck show no soft tissue abnormalities. IMPRESSION: BRAIN MRI: No findings of acute or subacute infarction can be seen. Note is made of age-appropriate brain parenchymal volume loss and chronic small vessel ischemic changes. No masses or abnormal enhancement can be seen. BRAIN MR ANGIOGRAM: No significant intracranial arterial abnormality is seen. NECK MR ANGIOGRAM: Within the arteries of the neck, no hemodynamically significant stenosis can be seen. However, the origins of the vertebral arteries are not well-seen. Dictated by: Kingsley Marcus M.D. on 06/03/2019 at 8:55 Transcribed by: EUNICE on 06/03/2019 at 8:59 Approved by: Kingsley Marcus M.D. on 06/03/2019 at 9:14
[2019-06-02] MEDS: METOPROLOL ER 25 MG TABLET PO (18:48)
[2019-06-02] MEDS: ATORVASTATIN 20 MG TABLET 40 MG PO (19:31)
[2019-06-02] MEDS: HYDRALAZINE 20 MG/ML VIAL 10 MG IV (19:31)
[2019-06-02] MEDS: IBUPROFEN 600 MG TABLET PO (21:03)
[2019-06-02] MEDS: SODIUM CHLORIDE 0.9% FLUSH 10 ML IV (21:07)
[2019-06-02 21:27] LABS: Thyroid Stimulating Hormone 2.54 uIU/mL (0.47-4.68)
--- NOTE | 2019-06-02 22:27 | PC.NURSE ---
Admit note: Jennifer brought from ER via stretcher, able to transfer self from stretcher to bed. BP elevated 187/67 immediately after patient settled into bed. Metoprolol given as now order. Pulse 60's. Tele monitoring in place, rhythm is sinus arrythmia. BP rechecked 45 min later at 177/77. IV Hydralazine given per prn orders, approx 1/2 hour after med given BP stable at 140/60. Patient denied headache pain when first brought from ER. At 2100 she said DAVID had returned, medicated with tylenol & has been sleeping since. NIH = zero. Nurse swallow eval done with no evidence of cough or problems swallowing. She reports recent fracture of right wrist, denies pain at this time.
[2019-06-03 00:47] VITALS: BP 108/47; PULSE 64; RESP 18; TEMP 37; O2SAT 94
[2019-06-03 05:00] VITALS: BP 129/66; PULSE 61; RESP 16; TEMP 36.6; O2SAT 94
[2019-06-03 05:42] LABS: Alanine Aminotransferase 87 IU/L (<35); Albumin 3.8 g/dL (3.5-5.0); Albumin Globulin Ratio 1.4 (1.0-2.8); Alkaline Phosphatase 51 U/L (38-126); Aspartate Aminotransferase 63 IU/L (14-36); Bilirubin Total 0.5 mg/dL (0.2-1.3); Bilirubin Unconjugated 0.4 mg/dL (0.0-1.1); Cholesterol 260 mg/dL (140-199); Globulin 2.7 g/dL (1.7-4.1); HDL Cholesterol 49 mg/dL (40-60); HEMOLYSIS < 15 (0-50); LDL Cholesterol Calculated 184 mg/dL (<100); Total Protein 6.5 g/dL (6.3-8.2); Triglycerides 135 mg/dL (35-150)
[2019-06-03] MEDS: PANTOPRAZOLE 20 MG TABLET PO (06:05)
[2019-06-03 06:08] LABS: Hemoglobin A1C% w Est Avg Glu 5.8 % (4.0-6.0)
[2019-06-03 08:00] VITALS: BP 152/69; PULSE 60; RESP 16; TEMP 36.8; O2SAT 96
--- NOTE | 2019-06-03 08:45 | CM.DANOTE ---
DCP: Case received, EMR reviewed and met with patient. Introduced self and role. Was able to converse with patient and obtain baseline health and activity information. DCP assessment completed with information currently available. Patient is a 78 year old female who admitted yesterday afternoon to the care of the hospitalist team. PCP: Dr. Miranda. Payer: confirmed: [facility]. Patient came to the hospital via family vehicle secondary to some difficulties with her speech. Patient mentioned, it was hard to get out what she wanted to say. Patient currently diagnosed with TIA. Patient's symptoms had resolved, but was continuing to have a headache. Met with patient in her room. Pleasant, she is alert and oriented. She is originally from [facility], and resides here in [place] with her spouse, Serafin. She is independent, drives. Confirmed that her primary care provider is Dr. Miranda. She is having some tests done today. P: DCP to continue to follow. Patient should be able to go home after testing, and when she is considered medically stable. Connie Stevenson RN/Physical Therapy Asst
[2019-06-03] MEDS: ENOXAPARIN 40 MG/0.4 ML SYRINGE SUBCUT (08:47)
[2019-06-03] MEDS: SODIUM CHLORIDE 0.9% FLUSH 10 ML IV (08:48)
--- NOTE | 2019-06-03 11:00 | PT.IIE ---
Surgical History (Last Reviewed 06/02/19 @ 14:38 by Nedra Barba DO) H/O left wrist surgery (Acute) Status post appendectomy Status post cholecystectomy Medical History (Last Reviewed 06/02/19 @ 14:38 by Nedra Barba DO) Borderline 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) Gastritis (Acute) Physical Therapy Inpatient Evaluation/Re-Eval M1 PT/OT-IP Prior Functional Status Start: 06/03/19 08:33 Freq: NEEDED Status: Active Protocol: Document 06/03/19 11:58 AW (Rec: 06/03/19 12:34 AW [id number]) Medical Review Prior Functional Status Medical History Reviewed Yes Communication WNL Mobility and Gait Independent without assistive device Activities of Daily Living and IADL's Independent Prior Functional Level (Other details) Pt drives, performs housework and yardwork as needed. She suffered a right wrist fracture from a fall in early March, so has needed some assist since then but is independent at baseline. She states she and her spouse are currently receiving Meals on Wheels since her wrist fracture limits her cooking. Social History Household Members spouse Living Arrangements House Number of Floors (Floors) 3 or More Floors Number of Stairs To Enter/Railing? 5 JUAN with narrow bilateral rails. Enters on main level and then must descend 12 steps with left rail descending to basement laundry. Most needs are located on main/entry level management. Home Environment Standard Height Toilet,High Toilet,Walk in Shower,Tub/ Shower Home Equipment Front Wheel Walker,Straight Cane,Manual Wheelchair,Shower Seat without Backrest Employment Status Retired M2 PT-IP Current Condition Start: 06/03/19 08:33 Freq: NEEDED Status: Active Protocol: Document 06/03/19 11:58 AW (Rec: 06/03/19 12:34 AW [id number]) Physical Therapy Current Condition Current Condition Evaluation Date 06/03/19 Treatment Diagnosis TIA, impaired communication, difficulty in walking Onset Date 06/02/19 Precautions Other Precautions Monitor BP (elevated since ED admission) Weight Bearing Status Weight Bearing Status Full Weight Bearing M3 PT-IP Subjective Start: 06/03/19 08:33 Freq: NEEDED Status: Active Protocol: Document 06/03/19 11:58 AW (Rec: 06/03/19 12:34 AW [id number]) Subjective Physical Therapy Visit Type Type Initial Evaluation Visit Start Time 10:35 Visit Stop Time 11:00 Total Visit Minutes 35 Notes Spouse, Don, present during evaluation. Physical Therapy Visit Comments Patient Comments Pt had a busy morning with MRI and echo, but is willing to participate with PT Patient Goals To go home M4 PT-IP Mobility and Gait Start: 06/03/19 08:33 Freq: NEEDED Status: Active Protocol: Document 06/03/19 11:58 AW (Rec: 06/03/19 12:34 AW [id number]) PT-Bed Mobility Assessment Supine to Sit Supine to Sit Independent Sit to Supine Sit to Supine Independent Scooting Scooting to Edge of Bed Independent PT-Transfer Assessment Sit to and From Stand Sit to and from Stand Standby Assistance Equipment Transfer Assistive Device Gait Belt Transfers Transfer Destination Bed Transfer Technique pt ambulated without assistive device Transfer Ability Level of Assist Independent Comments Mobility Comments Pt was independent with bed mobility and transfers, requiring SBA only for sit to stand due to mild imbalance with initial standing. Seated balance at EOB was good with pt able to withstand moderate balance challenge while maintaining midline posture. Standing balance also tested with pt able to withstand perturbations in all directions except posteriorly with (+) LOB backward from which she was able to recover without assist. Gait Assessment Gait Gait Assistance Required: Standby Assistance Distance (Feet) 300 Able to Maintain Weight Bearing Status Yes During Gait Assistive Devices Assistive Device Gait Belt Orthotic/Prosthetic Devices or Brace: No Gait Deviations General Gait Pattern Within Normal Limits Comments Gait Comments Pt ambulated in the halls without assistive device SBA. Functional Gait Assessment was performed with pt scoring 28/ 30 which is above age-adjusted norms (Walker, et al 2007). Points were deducted for mild path deviation with head turns and mild impairment with narrow base of support. Stair Climbing Assessment Evaluation Level of Assist On Stairs Standby Assistance Devices Stair Climbing Assistive Devices None Technique/Endurance Stair Climbing Direction Ascend and Descend Stair Climbing Technique Step Over Step Number of Steps Climbed 3 Query Text: Stair Climbing Set # Repetitions (reps) 4 Comments Stair Climbing Comments Pt able to complete stair navigation SBA without use of any UE support. PT-Balance Assessment Sitting Balance and Reactions Static Sitting Balance Ability Good Dynamic Sitting Balance Ability Good Standing Balance and Reactions Static Standing Balance Ability Good Dynamic Standing Balance Ability Good Device Used none Functional Assessments Functional Tests Functional Gait Assessment Other Functional Tests Performed See comments in gait section M5 PT-IP Objective Assessments Start: 06/03/19 08:33 Freq: NEEDED Status: Active Protocol: Document 06/03/19 11:58 AW (Rec: 06/03/19 12:34 AW [id number]) Orientation Orientation/Cognition Level of Alertness Alert Orientation Name,Day of Week,Place, Situation Language Function Ability No Deficits Noted Safety Awareness Understands Safety Issues Memory Description Short Term Impaired Comments Pt states she still feels she is slurring very slightly but she endorses >90% improvement since coming in to ED. When asked to recall three words ( apple, table, mulu), she was only able to recall one word unprompted and one other word when given a category clue ( furniture for table). Gross Range of Motion Upper Extremity ROM Assessment Right Impaired Impairments R wrist and fingers limited due to recent fracture. Lower Extremity ROM Assessment Within Functional Limits Strength Upper Extremity Strength Assessment Right Impaired Lower Extremity Strength Assessment Within Functional Limits Comments Strength Comments B LE strength symmetrical and grossly 4+/5 Coordination Assessment Gross Coordination Gross Coordination WNL Assessment Finger to Nose Test Normal Performance Pronation/Supination Test Normal Performance Heel on [place] Test Normal Performance Sensation Assessment Sensation Gross Sensation Right UE Impaired Comments Sensation Comments Right second and third digits with impaired light touch sensation since wrist fracture . Muscle Tone Muscle Tone WNL Yes M6 PT-IP Treatment Start: 06/03/19 08:33 Freq: NEEDED Status: Active Protocol: Document 06/03/19 11:58 AW (Rec: 06/03/19 12:34 AW [id number]) Physical Therapy Treatment Education Education Provided Precautions,Safety M7 PT-IP Assessment and Plan Start: 06/03/19 08:33 Freq: NEEDED Status: Active Protocol: Document 06/03/19 11:58 AW (Rec: 06/03/19 12:34 AW [id number]) PT Summary Assessment and Plan Potential Rehabilitation Potential Excellent Status of Condition at Evaluation Evolving Summary Impairments Pain,Balance Assessment Summary Jennifer is a 78 yo woman admitted under stroke protocol . MRI was clear of any acute or subacute infarct. At baseline, pt is independent in all regards but has recently required assist with some ADL' s and meal prep due to right wrist fracture in March 2019. On evaluation, pt required no more than SBA for all mobilities and scored 28/ 30 on Functional Gait Assessment which is higher than age-adjusted norm. She does endorse slight continued slurring and presents with signs of short-term memory deficits. It is unknown whether this is acute and related to TIA or more chronic in nature. Pt was advised to consider outpatient cognitive assessment. She will be safe to discharge home when medically stable. Frequency of Treatment Frequency Of Treatment Discharge Recommendations To Nursing Amount of Assist Needed Independent Discharge Recommendations PT Discharge Recommendations Home,Home with Assistance Other Discharge Recommendations Consider outpatient cognitive assessment.
[2019-06-03 11:23] VITALS: BP 123/66; PULSE 58
[2019-06-03] MEDS: METOPROLOL ER 50 MG TABLET PO (11:23)
[2019-06-03 11:51] VITALS: BP 126/68; PULSE 62
[2019-06-03 11:52] VITALS: RESP 16; O2SAT 94
--- NOTE | 2019-06-03 14:10 | PC.NURSE ---
Discharge instructions and information handouts reviewed with patient and her . IV dc'd intact. Tele removed. Patient eager to get home. New prescriptions reviewed with patient, she states understanding and has no further questions or concerns. Patient states she will call Dr. Arredondo office tomorrow to ensure follow up appointment for in 1 week is scheduled. Patient escorted out via wheelchair with all belongings. patient and her instructed to seek emergency care for new or worsening symptoms including signs or symptoms of TIA or stroke.
--- NOTE | 2019-06-03 14:42 | P.DS_ITS ---
History of Present Illness History of Present Illness Chief complaint: poss stroke Narrative: 78 year old woman with GERD who presented with difficulty speaking. The pt reports that earlier this morning she found it slightly difficult to find the words to speak. When at lunch with her later in the day, she was unable to clearly verbalize at all. She states that she knew what she wanted to say, but wasn't able to say it. She denies any associated focal weakness or facial droop. This lasted for around 30 minutes and then self-resolved. She then developed a very severe headache that persisted. Due to the headache, she decided to come to the ED for evaluation. The pt denies ever having similar symptoms in the past. She denies any recent chest pain, shortness of breath. She has overall been feeling well prior this episode. She has no history of migraines. She denies any history of hyper tension. She had been on a statin several years ago, but frequently forgot to take it, and so then stopped entirely. Discharge Providers Provider Date of admission: 06/02/19 16:49 Discharge Date: 06/03/19 Primary care physician: Renetta Miranda DO Consults: 06/02/19 18:28 Consult to Discharge Planning Routine Comment: Consult to Occupational Therapy Evaluate & Treat Comment: Physician Instructions: Evaluate and treat Consult to Physical Therapy Evaluate & Treat Comment: Physician Instructions: Evaluate and Treat Discharge provider: Leighann Brice MD Summary Hospital Course Discharge Diagnosis: TIA Hypertension Hyperlipidemia Hospital Course: The pt was admitted due to symptoms of TIA. She was also found to have severely elevated BP. She received one dose of IV Labetalol and one dose of IV Hydralazine to control her BP. She was also started on PO Metoprolol. At the time of discharge, her BP was in appropriate range on the Metoprolol. The pt did not have return of her expressive aphasia while hospitalized, and had no other neurological symptoms. She had an MRI stroke protocol completed that was negative. Echocardiogram was also unrevealing. The pt remained in sinus rhythm throughout her hospitalization. She was started on Atorvastatin and Aspirin while in the hospital, which she was agreeable to continuing to take as an outpatient. The pt was also found to have slightly elevated liver enzymes while in the hospital, which she has had in the past. Hepatitis panel was pending at the time of discharge. She will follow-up with her PCP within 2 weeks of discharge to ensure her BP remains adequately controlled. Status at Discharge Cognitive/behavioral status at discharge: oriented Functional status at discharge: independent ambulation Overall status at discharge: patient is back to baseline Time Spent with Patient Time spent: Greater than 30 minutes Exam Vital Signs (past 8 hours): - 06/03/19 08:00 06/03/19 11:23 06/03/19 11:51 Temperature 98.3 F Pulse Rate 60 58 L 62 Respiratory Rate 16 Blood Pressure 152/69 H 123/66 126/68 Pulse Oximetry 96 06/03/19 11:52 Temperature Pulse Rate Respiratory Rate 16 Blood Pressure Pulse Oximetry 94 Oxygen Delivery Method Room Air Oxygen Flow Rate 0 Narrative Exam Narrative: Gen: NAD, sitting comfortably in bed, appears well, speaking easily in complete sentences CV: RRR, grade 3/6 systolic murmur Resp: clear to auscultation bilaterally Abd: soft, nontender, nondistended Ext: no edema Objective Imaging MRI - head: Radiologist's impression: PROCEDURE: MR STROKE Pre- and post-contrast brain MRI, non-contrast brain MR angiogram, pre- and postcontrast neck MR angiogram INDICATIONS: TIA TECHNIQUE: Brain: Noncontrast axial T1 spin echo, axial T2 fast spin echo, sagittal and axial FLAIR, coronal T2 fast spin echo, axial gradient echo, axial diffusion and ADC through the brain. After the administration of contrast, axial 3D VIBE of the cranial vasculature and brain. Brain MRA: Non-contrast 3-D time of flight MR angiogram, with multiple jsisgmz-zbvpabkgo-ptnooziiku (MIP) reformats performed. Neck MRA: Axial and sagittal TruFISP through the neck. Coronal dynamic MR angiogram during administration of contrast in the arterial and venous phases, with 3- dimenstional vdgidph-nkdhvdejo-wxqztxdrri (MIP) reformats constructed from subtraction images. COMPARISON: [facility], CT, CT HEAD/BRAIN WO CON, 06/02/2019, 14:29. FINDINGS: Image quality: Excellent. BRAIN: CSF spaces: Ventricles are normal in size and shape. Basal cisterns are patent. No extra-axial fluid collections. Brain: No intracranial bleeds or mass effects. Mg-white matter interface is normal. Diffusion weighted images show no acute ischemic insults. Brainstem appears normal. Normal intravascular flow voids are present. No abnormal intracranial enhancement. Skull and face: Calvarial marrow signal is normal. Orbits appear normal. Sinuses: Sinuses and mastoids are clear. BRAIN MR ANGIOGRAM: Anterior circulation: Intracranial internal carotid arteries are normal in size and enhancement. The flow within the paired anterior cerebral arteries is normal and symmetric. Incidental note is made of an early bifurcation of the left anterior cerebral artery. The flow within the middle cerebral arteries is normal and symmetric. The anterior communicating artery is seen. No stenoses, occlusions, or aneurysms. Posterior circulation: The visualized portions of the vertebral arteries demonstrate normal caliber, and join to form a normal appearing basilar artery. The flow within the posterior cerebral arteries is normal and symmetric. No stenoses, occlusions, or aneurysms. NECK MR ANGIOGRAM: Carotids: Great vessels demonstrate a conventional anatomy as they arise from the aortic arch. The origins of the common carotid arteries appear patent. The calibers and courses of both common carotid arteries are normal. The bifurcation regions appear normal bilaterally. The internal carotid arteries demonstrate normal course and caliber. Posterior circulation: The origins of the vertebral arteries are not well-seen. More superior portions of both vertebral arteries demonstrate normal course and c aliber, and join to form a normal appearing basilar artery. Miscellaneous: Subclavian arteries appear patent. Pre-contrast images through the neck show no soft tissue abnormalities. IMPRESSION: BRAIN MRI: No findings of acute or subacute infarction can be seen. Note is made of age-appropriate brain parenchymal volume loss and chronic small vessel ischemic changes. No masses or abnormal enhancement can be seen. BRAIN MR ANGIOGRAM: No significant intracranial arterial abnormality is seen. NECK MR ANGIOGRAM: Within the arteries of the neck, no hemodynamically sign ificant stenosis can be seen. However, the origins of the vertebral arteries are not well-seen. Dictated by: Kingsley Marcus M.D. on 06/03/2019 at 8:55 Echocardiogram: Radiologist's impression: Interpretation Summary The left ventricle is mildly hyperdynamic with the ejection fraction visually estimated to be 70-75%. There are no obvious focal wall motion abnormalities noted but poor endocardial definition reduces the sensitivity for the detection of such. There is mild concentric left ventricular hypertrophy and the left ventricular cavity is small. Diastolic parameters suggest probable normal left ventricular diastolic function and normal filling pressures. The right ventricle grossly appears normal in size with probable normal systolic function. Pulmonary artery pressures cannot be estimated because of the lack of a measurable TR jet velocity but the IVC suggests a CVP of around 3 mmHg. Both atria are normal in size. There is no significant valvular heart disease. The ascending aorta is mildly enlarged. Labs Result Diagrams: 06/02/19 14:38 06/02/19 14:38 Labs: Laboratory Results - last 24 hr 06/02/19 06/02/19 06/02/19 14:38 14:38 14:38 WBC 6.5 RBC 4.02 Hgb 13.4 Hct 39.4 MCV 98.1 MCH 33.4 MCHC 34.0 RDW 13.4 Plt Count 233 Neut % (Auto) 59.1 Lymph % (Auto) 26.7 [place] % (Auto) 7.3 Eos % (Auto) 6.2 H Baso % (Auto) 0.7 Neut # (Auto) 3900 Lymph # (Auto) 1700 [place] # (Auto) 500 Eos # (Auto) 400 Baso # (Auto) 0 PT 11.5 INR 1.0 APTT 30 Sodium 141 Potassium 4.0 Chloride 103 Carbon Dioxide 29 BUN 20 H Creatinine 0.70 Estimated GFR > 60.0 BUN/Creatinine Ratio 28.6 H Glucose 122 H Hemoglobin A1c Calcium 9.8 Total Bilirubin 0.5 Conjugated Bilirubin Unconjugated Bilirubin AST 111 H ALT 134 H Alkaline Phosphatase 68 Total Creatine Kinase 206 H CK-MB (CK-2) 3.88 H CK-MB (CK-2) Rel Index 1.9 Troponin I < 0.012 Total Protein 7.8 Albumin 4.8 Globulin 3.0 Albumin/Globulin Ratio 1.6 Triglycerides Cholesterol LDL Cholesterol, Calc HDL Cholesterol TSH 06/02/19 06/03/19 06/03/19 14:38 04:50 04:50 WBC RBC Hgb Hct MCV MCH MCHC RDW Plt Count Neut % (Auto) Lymph % (Auto) [place] % (Auto) Eos % (Auto) Baso % (Auto) Neut # (Auto) Lymph # (Auto) [place] # (Auto) Eos # (Auto) Baso # (Auto) PT INR APTT Sodium Potassium Chloride Carbon Dioxide BUN Creatinine Estimated GFR BUN/Creatinine Ratio Glucose Hemoglobin A1c 5.8 Calcium Total Bilirubin 0.5 Conjugated Bilirubin 0.0 Unconjugated Bilirubin 0.4 AST 63 H ALT 87 H Alkaline Phosphatase 51 Total Creatine Kinase CK-MB (CK-2) CK-MB (CK-2) Rel Index Troponin I Total Protein 6.5 Albumin 3.8 Globulin 2.7 Albumin/Globulin Ratio 1.4 Triglycerides 135 Cholesterol 260 H LDL Cholesterol, Calc 184 H HDL Cholesterol 49 TSH 2.54 Discharge Plan Discharge Plan Discharge Problem: Brain TIA Patient Disposition: Home Discharge orders & Medications Prescriptions: New atorvastatin [Lipitor] 20 mg Tablet 40 mg PO BEDTIME Qty: 30 RF: 0 hydrocodone-acetaminophen 5-325 mg Tablet 1 tab PO Q8H PRN (Reason: pain) Qty: 10 RF: 0 metoprolol succinate 50 mg Tablet Extended Release 24 Hr 50 mg PO DAILY Qty: 30 RF: 0 aspirin [Adult Low Dose Aspirin] 81 mg tablet,delayed release (DR/EC) 81 mg PO DAILY Qty: 30 RF: 0 Continued omeprazole 20 mg capsule,delayed release(DR/EC) 20 mg PO DAILY Qty: 90 RF: 0 ibuprofen 200 mg Capsule 200 mg PO 1-2XD PRN (Reason: Pain, Moderate) RF: 0 acetaminophen [Tylenol] 325 mg Capsule 650 mg PO 1-2XD PRN (Reason: Pain (Scale Score 4-6)) RF: 0 Follow up/Referrals: Renetta Miranda DO [Primary Care Provider] - 1 Week Visit Report/Discharge Packet Instructions: DI for Transient Ischemic Attack, Atorvastatin, Metoprolol, Aspirin Visit Report Forms: Patient Portal/API, Stroke Signs & Symptoms Discharge Data Primary Care Provider: Renetta Miranda Attending Provider: Leighann Brice Admit Date/Time: 06/02/19 16:49 Discharges patient from system. Discharge Date/Time: 06/03/19 14:13 Quality VTE Deep Vein Thrombosis/Pulmonary Embolism Present on Admission: No
[2019-06-06 16:13] LABS: Hepatitis A Antibody IgM NONREACTIVE; Hepatitis B Core Antibody IgM NONREACTIVE; Hepatitis B Surface Antigen NONREACTIVE; Hepatitis C Antibody NONREACTIVE
== END 2019-06-03 14:13 | disposition home or self-care (01) ==
LOC: ED 16:13 → AC 16:51
PROVIDERS: Admitting Provider Family Medicine; Emergency Provider Emergency Medicine; PCP Family Medicine; Visit Provider Family Medicine
DX: G45.9 Transient cerebral ischemic attack, unspecified (principal); R29.818 Other symptoms and signs involving the nervous system; I10 Essential (primary) hypertension; E78.00 Pure hypercholesterolemia, unspecified; K21.9 Gastro-esophageal reflux disease without esophagitis; R74.8 Abnormal levels of other serum enzymes
CPT/HCPCS: 36415; 70450; 70548; 70553; 80053; 80061; 80074; 80076; 82550; 82553; 82962; 83036; 84443; 84484; 85025; 85610; 85730; 93005; 93306; 96361; 96372; 96374; 96375; 97161; 99217; 99218; 99285; G0378; J0360; J1650

== ENCOUNTER → 2019-06-25 09:16 | Outpatient (CLI) | payer OTHER, SELFPAY ==
[2019-06-02 18:16] VITALS: BMI 26.6
[2019-06-25 10:56] LABS: Alanine Aminotransferase 75 IU/L (<35); Albumin 4.4 g/dL (3.5-5.0); Albumin Globulin Ratio 1.5 (1.0-2.8); Alkaline Phosphatase 64 U/L (38-126); Aspartate Aminotransferase 74 IU/L (14-36); Bilirubin Total 0.7 mg/dL (0.2-1.3); Blood Urea Nitrogen 18 mg/dL (7-17); Carbon Dioxide 30 mmol/L (22-32); Chloride 102 mmol/L (98-107); Cholesterol 214 mg/dL (140-199); Estimated Glomerular Filt Rate > 60.0 mL/min (>60); Glucose 101 mg/dL (80-110); HDL Cholesterol 56 mg/dL (40-60); HEMOLYSIS < 15 (0-50); LDL Cholesterol Calculated 125 mg/dL (<100); Sodium 139 mmol/L (137-145); Total Protein 7.4 g/dL (6.3-8.2); Triglycerides 167 mg/dL (35-150)
== END ==
PROVIDERS: PCP Family Medicine; Visit Provider Family Medicine
DX: I10 Essential (primary) hypertension (principal); E78.5 Hyperlipidemia, unspecified; R73.03 Prediabetes
CPT/HCPCS: 36415; 80048; 80053; 80061

== ENCOUNTER → 2019-09-21 08:46 | Outpatient (CLI) | payer OTHER, SELFPAY ==
[2019-06-02 18:16] VITALS: BMI 26.6
[2019-09-21 10:39] LABS: Alanine Aminotransferase 51 IU/L (<35); Albumin 4.3 g/dL (3.5-5.0); Albumin Globulin Ratio 1.4 (1.0-2.8); Alkaline Phosphatase 61 U/L (38-126); Aspartate Aminotransferase 52 IU/L (14-36); BUN Creatinine Ratio 19.1 (6-22); Bilirubin Total 0.6 mg/dL (0.2-1.3); Blood Urea Nitrogen 17 mg/dL (7-17); Calcium 9.7 mg/dL (8.4-10.2); Carbon Dioxide 31 mmol/L (22-32); Chloride 103 mmol/L (98-107); Estimated Glomerular Filt Rate > 60.0 mL/min (>60); Globulin 3.1 g/dL (1.7-4.1); Glucose 101 mg/dL (80-110); HDL Cholesterol 51 mg/dL (40-60); HEMOLYSIS < 15 (0-50); Potassium 4.8 mmol/L (3.4-5.1); Sodium 139 mmol/L (137-145); Total Protein 7.4 g/dL (6.3-8.2); Triglycerides 302 mg/dL (35-150)
[2019-09-21 10:46] LABS: Cholesterol 345 mg/dL (140-199); LDL Cholesterol Calculated 234 mg/dL (<100)
== END ==
PROVIDERS: PCP Family Medicine; Referring Provider Family Medicine; Visit Provider Family Medicine
DX: E78.5 Hyperlipidemia, unspecified (principal); I10 Essential (primary) hypertension; R73.03 Prediabetes
CPT/HCPCS: 36415; 80053; 80061

== ENCOUNTER → 2019-11-22 08:10 | Outpatient (CLI) | payer OTHER, SELFPAY ==
[2019-06-02 18:16] VITALS: BMI 26.6
[2019-11-22 09:19] LABS: Alanine Aminotransferase 48 IU/L (<35); Albumin 4.4 g/dL (3.5-5.0); Albumin Globulin Ratio 1.6 (1.0-2.8); Alkaline Phosphatase 58 U/L (38-126); Aspartate Aminotransferase 52 IU/L (14-36); BUN Creatinine Ratio 33.3 (6-22); Bilirubin Total 0.6 mg/dL (0.2-1.3); Blood Urea Nitrogen 26 mg/dL (7-17); Calcium 9.8 mg/dL (8.4-10.2); Carbon Dioxide 30 mmol/L (22-32); Chloride 104 mmol/L (98-107); Cholesterol 252 mg/dL (140-199); Estimated Glomerular Filt Rate > 60.0 mL/min (>60); Globulin 2.7 g/dL (1.7-4.1); Glucose 108 mg/dL (80-110); HDL Cholesterol 51 mg/dL (40-60); HEMOLYSIS < 15 (0-50); LDL Cholesterol Calculated 163 mg/dL (<100); Potassium 5.2 mmol/L (3.4-5.1); Sodium 139 mmol/L (137-145); Total Protein 7.1 g/dL (6.3-8.2); Triglycerides 191 mg/dL (35-150)
== END ==
PROVIDERS: PCP Family Medicine; Referring Provider Family Medicine; Visit Provider Family Medicine
DX: I10 Essential (primary) hypertension (principal); R73.03 Prediabetes; R79.89 Other specified abnormal findings of blood chemistry
CPT/HCPCS: 36415; 80053; 80061

== ENCOUNTER → 2020-02-25 11:25 | Outpatient (CLI) | payer OTHER, SELFPAY ==
[2019-06-02 18:16] VITALS: BMI 26.6
--- NOTE | 2020-02-25 11:26 | DI.RAD.S_ITS ---
PROCEDURE: XR CHEST 2V INDICATIONS: SHORTNESS OF BREATH TECHNIQUE: 2 views of the chest were acquired. COMPARISON: [facility], , CHEST 2 VIEW, 04/12/2017, 11:15. FINDINGS: Surgical changes and devices: None. Lungs and pleura: Lungs are clear. No pleural effusions or pneumothorax. Mediastinum: Mediastinal contours are normal. Heart size is normal. Bones and chest wall: No suspicious bony abnormalities. Soft tissues appear unremarkable. IMPRESSION: No acute disease. Dictated by: Roberto Bermeo M.D. on 02/25/2020 at 12:03 Approved by: Roberto Bermeo M.D. on 02/25/2020 at 12:04
== END ==
PROVIDERS: PCP Family Medicine; Referring Provider Family Medicine; Visit Provider Family Medicine
DX: R06.02 Shortness of breath (principal)
CPT/HCPCS: 71046

== ENCOUNTER → 2020-03-25 11:23 | Outpatient (CLI) | payer OTHER, SELFPAY ==
[2020-03-19 15:22] VITALS: BMI 26.6
[2020-03-26 06:52] LABS: COVID19 Sendout Not Detected (Not Detect)
== END ==
PROVIDERS: PCP Family Medicine; Visit Provider Nurse Practitioner
DX: Z11.59 Encounter for screening for other viral diseases (principal)
CPT/HCPCS: 87635

== ENCOUNTER → 2020-03-28 09:50 | Outpatient (CLI) | payer OTHER, SELFPAY ==
[2019-06-02 18:16] VITALS: BMI 26.6
[2020-03-19 15:22] VITALS: BMI 26.6
--- NOTE | 2020-03-28 15:17 | PM.TREADMILL ---
Cardiac Stress Test Report Referral & Results Date Patient Seen: 03/28/20 Requesting provider: Renetta Miranda Indication: Dyspnea Rest ECG: Unremarkable Procedure Note: Today following both written and verbal informed consent the patient was exercised according to a standard Nathan protocol patient went for a total of 5 minutes 44 seconds achieving a maximum heart rate of 118 maximum systolic blood pressure of 180. This is approximately 7.0 METS. Exercise was terminated at this point because of targets were met and patient fatigue and inability to continue. Patient was also given Cardiolite through a previously started Hep-Lock IV by the diagnostic imaging staff approximately 1 minute prior to the cessation of exercise. Patient was wheezing upon discontinuation of activity which may be a clue as to source of symptoms of dyspnea on exertion Normal heart rate and blood pressure response There is some mild scooping of inferior leads at peak exercise without clear evidence of ischemia No dysrhythmia Functional aerobic impairment rates-10% on the active scale or 10% better than average Impression: No clear ECG evidence of ischemia Question possible pulmonary disease as above Please see perfusion imaging report as well. Please note: Actual ECG tracings can be found in the PACS system.
--- NOTE | 2020-03-28 18:48 | DI.NM.S_ITS ---
DATE OF SERVICE: 03/28/2020 INDICATIONS: Shortness of breath, hypertension. RADIOPHARMACEUTICAL: 25.2 mCi technetium-99m Myoview IV was injected at stress and 9.7 mCi technetium-99m Myoview IV was injected at rest. CARDIAC STRESS: The patient underwent exercise perfusion study under the supervision of an attending staff. She walked on Nathan protocol for 5 minutes and 44 seconds, achieved 84% of target heart rate and normal blood pressure response. She achieved functional aerobic impairment -10% and 7 METS of workload. At the end of exercise, patient had wheezing and some shortness of breath. No chest pain. Baseline EKG revealed sinus rhythm with up to less than [address] depression inferior lateral leads. During stress, there was artifact seen. However, in the immediate recovery, there were some pronounced ST changes in inferolateral leads. Intermittent PACs were seen. No sustained ventricular tachycardia or obvious atrial fibrillation seen. RAW DATA: There is increased subdiaphragmatic activity. GATED STUDY: Stress LV ejection fraction 86% without any obvious wall motion abnormalities. Resting end-diastolic volume 70 mL. TID ratio 1.11, which is within normal limits. Lung/heart ratio 0.36, which is within normal limits. MYOCARDIAL PERFUSION SCAN: Stress supine images revealed small size, minimally decreased perfusion of anterior wall which got resolved during prone images suggestive of breast tissue attenuation artifact. CONCLUSION: I will call this study a normal myocardial perfusion study with evidence of breast tissue attenuation artifact which got resolved during prone images. Prone images revealed normal myocardial perfusion. Fair exercise tolerance. Preserved left ventricular function. Overall, this is a low-risk myocardial perfusion scan. Jennifer Chaudhry - ANA/nic/sb doc#: [id number]/job#: [id number] dd: 03/28/2020 16:47:00 dt: 03/28/2020 18:41:00 DICTATING MD/COPIES TO: Crow Conde MD COPIES MNE: GIANFRANCO;
== END ==
PROVIDERS: PCP Family Medicine; Referring Provider Family Medicine; Visit Provider Family Medicine
DX: R06.02 Shortness of breath (principal); I10 Essential (primary) hypertension; R06.00 Dyspnea, unspecified
CPT/HCPCS: 78452; 93016; 93017; 93018; A9502

== ENCOUNTER 2020-09-23 09:49 | Emergency (ER) | payer OTHER, SELFPAY ==
[2020-03-19 15:22] VITALS: BMI 26.6
[2020-09-23 10:05] VITALS: BP 189/78; PULSE 79; RESP 18; TEMP 36.2; O2SAT 100
--- NOTE | 2020-09-23 10:14 | ED.HA ---
HPI - Headache General Chief Complaint: Headache Stated Complaint: headache,left eye swollen Time Seen by Provider: 09/23/20 10:12 Source: patient Mode of arrival: Ambulatory Limitations: no limitations History of Present Illness HPI Narrative: Patient is a 79-year-old female. She states she has no other medical problems. Takes no medications. Here for evaluation of a left-sided headache and redness and swelling around her left eye. States the headache started a couple days ago but she woke up this morning with the redness and the swelling. Has not tried anything for the symptoms. Describes it as a ?searing pain? no subjective fevers. Has never had anything like this in the past. Related Data Previous Rx's Medication Instructions Recorded hydrocodone-acetaminophen 1 tab PO Q4-6H PRN #20 tab 09/23/20 valacyclovir 1,000 mg PO TID 7 Days #21 tab 09/23/20 Allergies Allergy/AdvReac Type Severity Reaction Status Date / Time No Known Drug Allergies Allergy Verified 09/23/20 10:11 Review of Systems Constitutional Constitutional: Denies chills, Denies fatigue and Reports headache(s) Eyes Comments: Swelling or redness around left eye ENT Ears, Nose, Mouth, and Throat: Denies vertigo, Reports facial pain and Reports headache(s) Comments: Left ear itching Cardiovascular Cardiovascular: Denies chest pain and Denies dyspnea Respiratory Respiratory: Denies cough and Denies dyspnea Gastrointestinal Gastrointestinal: Denies abdominal pain, Denies nausea and Denies vomiting Genitourinary Genitourinary: Denies dysuria Genitourinary: Denies dysuria Musculoskeletal Musculoskeletal: Denies arthralgias and Denies myalgias Integumentary/Breasts Comments: Redness and swelling on the side of her nose/left forehead Neurologic Neurologic: Reports burning sensations, Denies vertigo and Reports headache(s) Endocrine Endocrine: Denies fatigue Hematologic/Lymphatic On Anticoagulants: No Allergic/Immunologic Allergic/Immunologic: Denies urticaria Patient History Medical History Borderline 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) Essential hypertension Gastritis Hyperlipidemia, unspecified Pain in posterior right lower extremity Pneumonia Upper respiratory infection Surgical History H/O left wrist surgery Status post appendectomy Status post cholecystectomy Social History household members: spouse Smoking Status: Never smoker alcohol intake: former Smoking Status: Never smoker alcohol intake frequency: 0-2 drinks per day Substance Use Type: does not use Exam Initial Vital Signs Initial Vital Signs: Vital Signs Temperature 97.2 F L 09/23/20 10:05 Pulse Rate 79 09/23/20 10:05 Respiratory Rate 18 09/23/20 10:05 Blood Pressure 189/78 H 09/23/20 10:05 Pulse Oximetry 100 09/23/20 10:05 Const General: cooperative Limitations: mental status not altered HENMT Head: scalp lesion and scalp tenderness Ears: hearing grossly normal bilaterally, TM's normal bilaterally and EAC's normal Nose: No external nose normal (Redness exterior nose) Face and sinus: erythema Mouth: oral mucosae normal Teeth and gingiva: dentition normal Eyes Other: Right eyes unremarkable. Floor seen used with left eye. There were no dendrites nor abrasions noted. There was quite a bit of scleral injection and conjunctival injection. There is no drainage. Does have he is in his around the cornea. No foreign bodies noted. Pupil reactive. Neck Lymphatic: No lymphadenopathy Resp Effort & Inspection: normal respiratory effort Auscultation: clear to auscultation bilaterally Cardio Rate: regular rate Rhythm: regular rhythm GI Inspection: non-distended Palpation: soft Skin Other: Patient does have fascicular lesions on the scalp on the left side of the do not cross midline. There is redness that extends down to her forehead all the way to the maxilla predominantly on the left. Her left eye upper eyelid is swollen. There are no vesicles noted on the face. Neuro General: patient alert, patient awake and patient oriented x3 Speech: speech normal Extrem General: normal to inspection and capillary refill normal Psych Appearance: grossly normal and well kempt Scores GCS Justine coma scale eye opening: Spontaneous [place] coma scale verbal response: Orientated [place] coma scale motor response: Obey commands [place] coma scale total score: 15 Course Orders Ordered: ED Orders 09/23/20 10:20 Basic Metabolic Panel Stat Complete Blood Count AUTO DIFF Stat Discontinued Medications Fluorescein Sodium (Fluorescein 1 Mg Strip) 1 mg EYE-BOTH NOW ONE Stop: 09/23/20 10:13 Last Admin: 09/23/20 10:27 Dose: 1 mg Documented by: VALE Proparacaine HCl (Proparacaine 0.5% Ophth Keisha) 1 drops EYE-LEFT NOW ONE Stop: 09/23/20 10:13 Last Admin: 09/23/20 10:27 Dose: 1 drops Documented by: VALE Vital Signs Vital signs: Vital Signs - 8 hr 09/23/20 10:05 Temperature 97.2 F L Pulse Rate 79 Respiratory Rate 18 Blood Pressure 189/78 H Pulse Oximetry 100 MDM - Headache Lab Data Attestation: I reviewed the patient's lab results. Result diagrams: 09/23/20 10:20 09/23/20 10:20 Labs: Lab Results 09/23/20 09/23/20 Range/Units 10:20 10:20 WBC 4.0 L (4.5-11.0) X10^3/uL RBC 4.08 (4.0-5.2) X10^6/uL Hgb 13.4 (12.0-16.0) g/dL Hct 40.4 (36-46) % MCV 99.0 (80-100) fL MCH 32.8 (26-34) PG MCHC 33.2 (30-36) % RDW 13.3 (11.6-14.8) % Plt Count 189 (150-400) X10^3/uL Neut % (Auto) 61.3 (50-75) % Lymph % (Auto) 17.9 L (25-40) % [place] % (Auto) 10.6 (3-14) % Eos % (Auto) 9.1 H (2-4) % Baso % (Auto) 1.1 (0-2) % Neut # (Auto) 2400 (8795-3182) /uL Lymph # (Auto) 700 L (2648-4519) /uL [place] # (Auto) 400 (0-900) /uL Eos # (Auto) 400 (0-450) /uL Baso # (Auto) 0 (0-100) /uL Sodium 138 (137-145) mmol/L Potassium 4.4 (3.4-5.1) mmol/L Chloride 104 (98-107) mmol/L Carbon Dioxide 29 (22-32) mmol/L BUN 24 H (7-17) mg/dL Creatinine 0.92 (0.52-1.04) mg/dL Estimated GFR 58.9 L (>60) mL/min BUN/Creatinine Ratio 26.1 H (6-22) Glucose 163 H (80-110) mg/dL Calcium 9.7 (8.4-10.2) mg/dL MDM Narrative Medical decision making narrative: Patient's physical exam is consistent with zoster. Given her eye and nose and ear symptoms I do of concern about eye involvement. She is afebrile. Also considered other etiologies such as orbital/preseptal cellulitis however given the lesions in her scalp I feel that zoster is most likely. Will send home with valacyclovir. Also sent home with pain medication. I discussed the case with Dr. malagon with Ophthalmology. Will send the patient over to the ophthalmology clinic after discharge for further evaluation of her left eye. Patient was given return precautions and follow-up instructions. She expressed understanding agreement. Discharge Plan Departure Patient Disposition: Home Clinical Impression: Shingles Instructions: DI for Shingles Activity Restrictions/Additional Instructions: A prescription for pain medication an antiviral medication was electronically transmitted to [facility]. When you leave the emergency department your to go to the ophthalmology clinic here at the hospital for further evaluation of your left eye. If any medications are given to you during that visit that will be in addition to the medicines that you received today. Contact your primary provider for a follow-up. Please return to the emergency department for any new or worsening symptoms Prescriptions: New hydrocodone-acetaminophen 5-325 mg tablet 1 tab PO Q4-6H PRN (Reason: pain) Qty: 20 RF: 0 valacyclovir 1 gram tablet 1,000 mg PO TID 7 Days Qty: 21 RF: 0 Referrals: Renetta Miranda DO [Primary Care Provider] -
[2020-09-23 10:27] LABS: Add Manual Diff / Slide Review NO; Basophils Absolute Auto 0 /uL (0-100); Basophils Percent Auto 1.1 % (0-2); Eosinophils Absolute Auto 400 /uL (0-450); Eosinophils Percent Auto 9.1 % (2-4); Hematocrit 40.4 % (36-46); Hemoglobin 13.4 g/dL (12.0-16.0); Lymphocytes Absolute Auto 700 /uL (1100-4500); Lymphocytes Percent Auto 17.9 % (25-40); Mean Corpuscular HGB Conc 33.2 % (30-36); Mean Corpuscular Hemoglobin 32.8 PG (26-34); Monocytes Absolute Auto 400 /uL (0-900); Monocytes Percent Auto 10.6 % (3-14); Neutrophils Absolute Auto 2400 /uL (1500-7000); Neutrophils Percent Auto 61.3 % (50-75); Platelet Count 189 X10^3/uL (150-400); Red Blood Cell Count 4.08 X10^6/uL (4.0-5.2); Red Cell Distribution Width 13.3 % (11.6-14.8)
[2020-09-23] MEDS: FLUORESCEIN 1 MG STRIP EYE-BOTH (10:27)
[2020-09-23] MEDS: PROPARACAINE 0.5% OPHTH SOL 1 DROPS EYE-LEFT (10:27)
[2020-09-23 10:37] LABS: BUN Creatinine Ratio 26.1 (6-22); Blood Urea Nitrogen 24 mg/dL (7-17); Calcium 9.7 mg/dL (8.4-10.2); Carbon Dioxide 29 mmol/L (22-32); Chloride 104 mmol/L (98-107); Estimated Glomerular Filt Rate 58.9 mL/min (>60); Glucose 163 mg/dL (80-110); HEMOLYSIS < 15 (0-50); Potassium 4.4 mmol/L (3.4-5.1); Sodium 138 mmol/L (137-145)
[2020-09-23] MEDS: MORPHINE 4 MG/ML INJ IM (10:53)
[2020-09-23 11:15] VITALS: BP 162/70; PULSE 70; RESP 17; O2SAT 98
== END 2020-09-23 11:27 | disposition home or self-care (01) ==
PROVIDERS: Emergency Provider Emergency Medicine; PCP Family Medicine
DX: B02.9 Zoster without complications (principal)
CPT/HCPCS: 80048; 85025; 96372; 99283; J2270

== ENCOUNTER → 2020-12-18 15:13 | Outpatient (CLI) | payer OTHER, SELFPAY ==
[2020-03-19 15:22] VITALS: BMI 26.6
[2020-12-18 17:22] LABS: Alanine Aminotransferase 39 IU/L (<35); Albumin 4.2 g/dL (3.5-5.0); Albumin Globulin Ratio 1.3 (1.0-2.8); Alkaline Phosphatase 56 U/L (38-126); Aspartate Aminotransferase 53 IU/L (14-36); Bilirubin Total 0.5 mg/dL (0.2-1.3); Blood Urea Nitrogen 20 mg/dL (7-17); Calcium 9.7 mg/dL (8.4-10.2); Carbon Dioxide 30 mmol/L (22-32); Chloride 105 mmol/L (98-107); Cholesterol 294 mg/dL (140-199); Estimated Glomerular Filt Rate > 60.0 mL/min (>60); Globulin 3.3 g/dL (1.7-4.1); Glucose 118 mg/dL (80-110); HDL Cholesterol 63 mg/dL (40-60); HEMOLYSIS < 15 (0-50); LDL Cholesterol Calculated 183 mg/dL (<100); Potassium 4.3 mmol/L (3.4-5.1); Sodium 141 mmol/L (137-145); Total Protein 7.5 g/dL (6.3-8.2); Triglycerides 241 mg/dL (35-150)
== END ==
PROVIDERS: PCP Family Medicine; Referring Provider Family Medicine; Visit Provider Family Medicine
DX: E78.5 Hyperlipidemia, unspecified (principal); I10 Essential (primary) hypertension; R73.03 Prediabetes; R79.89 Other specified abnormal findings of blood chemistry
CPT/HCPCS: 36415; 80053; 80061

== ENCOUNTER → 2020-12-25 11:54 | Outpatient (CLI) | payer OTHER, SELFPAY ==
[2020-03-19 15:22] VITALS: BMI 26.6
--- NOTE | 2020-12-25 11:55 | DI.RAD.S_ITS ---
PROCEDURE: XR KNEE RT 3V INDICATIONS: right knee pain TECHNIQUE: 3 views of the knee were acquired. COMPARISON: None. FINDINGS: Bones: Scattered degenerative subchondral sclerosis and spurring. Mild narrowing of the medial joint space. Soft tissues: Trace joint effusion. Scattered vascular calcifications. Mild anterior soft tissue swelling. IMPRESSION: Degenerative changes as above and trace joint effusion. If the patient's pain or other symptoms persist, consider further evaluation with MRI Dictated by: Roberto Bermeo M.D. on 12/25/2020 at 13:23 Approved by: Roberto Bermeo M.D. on 12/25/2020 at 13:24
--- NOTE | 2020-12-25 11:55 | DI.RAD.S_ITS ---
PROCEDURE: XR HIP W PEL IF DONE RT 2V INDICATIONS: right hip pain TECHNIQUE: 3 views of the hip were acquired. COMPARISON: None. FINDINGS: Bones: No fractures or dislocations. No suspicious bony lesions. The visualized pelvic ring appears intact. Moderate joint narrowing with periarticular osteophyte formation of the hip joints bilaterally. Degenerative disc and facet disease involves the inferior lumbar spine. Soft tissues: No suspicious soft tissue calcifications or masses. IMPRESSION: Moderate symmetric hip joint degeneration Dictated by: Bill Galarza [facility] Interpreted: Sagar Sandhu MD on 12/25/2020 at 12:36 Transcribed by: NYLA on 12/25/2020 at 12:40 Approved by: Sagar Sandhu M.D. on 12/25/2020 at 14:46
== END ==
PROVIDERS: PCP Family Medicine; Referring Provider Family Medicine; Visit Provider Family Medicine
DX: M25.551 Pain in right hip (principal); M16.0 Bilateral primary osteoarthritis of hip; M25.561 Pain in right knee
CPT/HCPCS: 73502; 73562

== ENCOUNTER → 2021-01-09 10:28 | Outpatient (CLI) | payer OTHER, SELFPAY ==
[2020-03-19 15:22] VITALS: BMI 26.6
--- NOTE | 2021-01-09 | DI.MG.S_ITS ---
BILATERAL DIGITAL SCREENING MAMMOGRAM 3D/2D WITH CAD: 01/09/2021 CLINICAL: Routine screening. Family history of breast cancer. Comparison is made to exams dated: 12/05/2014 mammogram, 10/05/2012 mammogram, and 08/04/2011 mammogram - [facility]. There are scattered fibroglandular elements in both breasts. Current study was also evaluated with a Computer Aided Detection (CAD) system. No significant masses, calcifications, or other findings are seen in either breast. There has been no significant interval change. IMPRESSION: NEGATIVE There is no mammographic evidence of malignancy. A 1 year screening mammogram is recommended. This exam was interpreted at Station ID: [id number]. NOTE: For mammograms, a report in lay terms will be sent to the patient. Approximately 15% of breast malignancies will not be visualized mammographically. In the management of a palpable breast mass, a negative mammogram must not discourage biopsy of a clinically suspicious lesion. Electronically Signed By: John capps/ender:01/09/2021 12:45:30 letter sent: Normal Exam ACR BI-RADS Category 1: Negative [id number]
== END ==
PROVIDERS: Family Provider Family Medicine; PCP Family Medicine; Referring Provider Family Medicine; Visit Provider Family Medicine
DX: Z12.31 Encounter for screening mammogram for malignant neoplasm of breast (principal); Z80.3 Family history of malignant neoplasm of breast
CPT/HCPCS: 77063; 77067

== ENCOUNTER → 2021-11-10 11:42 | Outpatient (CLI) | payer OTHER, SELFPAY ==
[2020-03-19 15:22] VITALS: BMI 26.6
--- NOTE | 2021-11-10 11:45 | DI.RAD.S_ITS ---
PROCEDURE: XR CHEST 2V INDICATIONS: cough x 3 months TECHNIQUE: 2 views of the chest were acquired. COMPARISON: [facility], , XR CHEST 2V, 02/25/2020, 11:24. FINDINGS: Surgical changes and devices: None. Lungs and pleura: Lungs are clear. No pleural effusions or pneumothorax. Mediastinum: Mediastinal contours are normal. Heart size is normal. Bones and chest wall: No suspicious bony abnormalities. Soft tissues appear unremarkable. IMPRESSION: No acute process. Dictated by: Carmen Pineda M.D. on 11/10/2021 at 14:26 Approved by: Carmen Pineda M.D. on 11/10/2021 at 14:28
== END ==
PROVIDERS: Family Provider Family Medicine; PCP Pediatrics; Referring Provider Pediatrics; Visit Provider Pediatrics
DX: J98.01 Acute bronchospasm (principal)
CPT/HCPCS: 71046

== ENCOUNTER → 2022-03-02 11:55 | Outpatient (CLI) | payer OTHER, SELFPAY ==
[2020-03-19 15:22] VITALS: BMI 26.6
[2022-03-02 12:47] LABS: Add Manual Diff / Slide Review NO; Basophils Absolute Auto 0 /uL (0-100); Basophils Percent Auto 0.8 % (0-2); Eosinophils Absolute Auto 400 /uL (0-450); Eosinophils Percent Auto 8.6 % (2-4); Hematocrit 36.9 % (36-46); Hemoglobin 12.6 g/dL (12.0-16.0); Lymphocytes Absolute Auto 1700 /uL (1100-4500); Lymphocytes Percent Auto 35.3 % (25-40); Mean Corpuscular HGB Conc 34.2 % (30-36); Mean Corpuscular Hemoglobin 33.3 PG (26-34); Mean Corpuscular Volume 97.6 fL (80-100); Monocytes Absolute Auto 500 /uL (0-900); Monocytes Percent Auto 9.6 % (3-14); Neutrophils Absolute Auto 2200 /uL (1500-7000); Neutrophils Percent Auto 45.7 % (50-75); Platelet Count 221 X10^3/uL (150-400); Red Blood Cell Count 3.78 X10^6/uL (4.0-5.2); Red Cell Distribution Width 13.6 % (11.6-14.8); White Blood Cell Count 4.7 X10^3/uL (4.5-11.0)
[2022-03-02 13:30] LABS: Alanine Aminotransferase 51 IU/L (<35); Albumin Globulin Ratio 1.3 (1.0-2.8); Alkaline Phosphatase 53 U/L (38-126); Aspartate Aminotransferase 60 IU/L (14-36); BUN Creatinine Ratio 18.5 (6-22); Bilirubin Total 0.4 mg/dL (0.2-1.3); Blood Urea Nitrogen 15 mg/dL (7-17); Calcium 9.3 mg/dL (8.4-10.2); Carbon Dioxide 29 mmol/L (22-32); Chloride 103 mmol/L (98-107); Cholesterol 292 mg/dL (140-199); Estimated Glomerular Filt Rate > 60 mL/min (>60); Globulin 3.1 g/dL (1.7-4.1); Glucose 97 mg/dL (80-110); HDL Cholesterol 59 mg/dL (40-60); HEMOLYSIS < 15 (0-50); LDL Cholesterol Calculated 201 mg/dL (<100); Potassium 4.7 mmol/L (3.4-5.1); Sodium 140 mmol/L (137-145); Total Protein 7.1 g/dL (6.3-8.2); Triglycerides 159 mg/dL (35-150)
[2022-03-02 13:59] LABS: TSH w/ Reflex to FT4 2.57 uIU/mL (0.47-4.68)
[2022-03-02 14:16] LABS: Vitamin B12 713 pg/mL (239-931)
[2022-03-02 15:07] LABS: Microalbumin Urine Random < 0.6 mg/dL (0-1.6)
== END ==
PROVIDERS: Family Provider Family Medicine; PCP Family Medicine; Referring Provider Student in an Organized Health Care Education/Training Program; Visit Provider Student in an Organized Health Care Education/Training Program
DX: R06.09 Other forms of dyspnea (principal); E78.2 Mixed hyperlipidemia; I10 Essential (primary) hypertension; R73.03 Prediabetes
CPT/HCPCS: 36415; 80053; 80061; 82043; 82570; 82607; 84443; 85025

== ENCOUNTER → 2022-03-12 11:57 | Outpatient (CLI) | payer OTHER, SELFPAY ==
[2020-03-19 15:22] VITALS: BMI 26.6
[2022-03-12 12:59] LABS: COVID19 -Nasal RAPID Negative (Negative)
== END ==
PROVIDERS: Family Provider Family Medicine; PCP Family Medicine; Referring Provider Internal Medicine; Visit Provider Internal Medicine
DX: Z20.822 Contact with and (suspected) exposure to COVID-19 (principal)
CPT/HCPCS: 87635; C9803

== ENCOUNTER → 2022-03-12 12:02 | Outpatient (CLI) | payer OTHER, SELFPAY ==
[2020-03-19 15:22] VITALS: BMI 26.6
--- NOTE | 2022-03-20 10:37 | P.PFT.S_ITS ---
Pulmonary Function Test Referral & Results Date Patient Seen: 03/12/22 Requesting provider: Davion Ford Results: The spirometry demonstrates an FVC of 1.71 L which is 64% of predicted. The FEV1 was measured at 1.26 L which is 63% of predicted. The FEV1/FVC ratio was 74 which is 99% of predicted. Following the administration of bronchodilator there was a 13% improvement in FEV1 and a 69% improvement in FEF 25-75%. Lung volumes show an SVC of 1.94 L which is 71% of predicted. The diffusing capacity was measured at 18.44 which is 72% of predicted. No hemoglobin value was provided, so no correction for potential anemia could be made, if appropriate. The maximum voluntary ventilation was reduced Interpretation: This study demonstrates probably mild obstructive lung disease based on re duction FEV1 although FEV1/FVC ratio is preserved there is however evidence of benefit following bronchodilator as above in both small airways as well as the FEV1 There is a mjsg-qe-rfyonnsz reduction in lung volumes suggesting the presence of itqk-gd-htlzoqdi restrictive lung disease which does probably explain some of the abnormality in the FEV1 above , unless patient is anemic suggesting the presence of disease at the capillary alveolar level Compared to PFTs performed in May 2017, current study shows minimal decline in forced spirometry but an increase in restrictive lung disease and a decline in diffusing capacity Clinical correlation suggested There is a mild reduction in diffusing capacity
== END ==
PROVIDERS: Family Provider Family Medicine; PCP Family Medicine; Referring Provider Student in an Organized Health Care Education/Training Program; Visit Provider Student in an Organized Health Care Education/Training Program
DX: R06.02 Shortness of breath (principal); R06.09 Other forms of dyspnea; J98.8 Other specified respiratory disorders; Z20.822 Contact with and (suspected) exposure to COVID-19
CPT/HCPCS: 87635; 94060; 94726; 94729; C9803

== ENCOUNTER → 2022-04-08 11:55 | Outpatient (CLI) | payer OTHER, SELFPAY ==
[2020-03-19 15:22] VITALS: BMI 26.6
[2022-04-08 13:14] LABS: COVID19 -Nasal RAPID Negative (Negative)
--- NOTE | 2022-04-08 14:26 | P.PCN_ITS ---
Cardiac Stress Test Report Referral & Results Date Patient Seen: 04/08/22 Requesting provider: Madhuri Pascual Indication: Dyspnea with exertion Rest ECG: Unremarkable Procedure Note: Today following both written and verbal informed consent, the patient was exercised according to a standard Nathan protocol. The patient exercised for a total of 5 minutes 28 seconds achieving a maximum heart rate of 112. Patient's maximum systolic blood pressure was 166. This was an estimated 7.0 MET's. There are no ST-T segment changes identified Patient had normal heart rate and blood pressure response to exercise Function aerobic impairment was off scale but I estimated to be approximately - 10% or 110% of normal on the active scale Oxygen saturation remained normal throughout despite significant dyspnea developing She had rare PACs and a 3 beat run of SVT in the recovery portion of the test Impression: Normal treadmill without evidence of ischemia. Patient did experience dyspnea that seem to me to be well out of proportion to any findings above including her oxygen saturation which remain normal. Clinical correlation suggested Please note: Actual ECG tracings can be found in the PACS system.
== END ==
PROVIDERS: Family Provider Family Medicine; PCP Family Medicine; Referring Provider Student in an Organized Health Care Education/Training Program; Visit Provider Student in an Organized Health Care Education/Training Program
DX: R06.09 Other forms of dyspnea (principal); E78.49 Other hyperlipidemia; Z20.822 Contact with and (suspected) exposure to COVID-19
CPT/HCPCS: 87635; 93016; 93017; 93018

== ENCOUNTER → 2022-04-23 09:53 | Outpatient (CLI) | payer OTHER, SELFPAY ==
[2020-03-19 15:22] VITALS: BMI 26.6
[2022-04-23 10:54] LABS: Cholesterol 185 mg/dL (140-199); HDL Cholesterol 62 mg/dL (40-60); LDL Cholesterol Calculated 102 mg/dL (<100); Triglycerides 107 mg/dL (35-150)
== END ==
PROVIDERS: Family Provider Family Medicine; PCP Family Medicine; Referring Provider Student in an Organized Health Care Education/Training Program; Visit Provider Student in an Organized Health Care Education/Training Program
DX: E78.49 Other hyperlipidemia (principal)
CPT/HCPCS: 36415; 80061

== ENCOUNTER → 2023-04-11 09:43 | Outpatient (CLI) | payer OTHER, SELFPAY ==
[2020-03-19 15:22] VITALS: BMI 26.6
[2023-04-11 11:07] LABS: Alanine Aminotransferase 34 IU/L (<35); Albumin 4.2 g/dL (3.5-5.0); Albumin Globulin Ratio 1.4 (1.0-2.8); Alkaline Phosphatase 50 U/L (38-126); Aspartate Aminotransferase 44 IU/L (14-36); BUN Creatinine Ratio 20.8 (6-22); Bilirubin Total 0.7 mg/dL (0.2-1.3); Blood Urea Nitrogen 20 mg/dL (7-17); Calcium 9.9 mg/dL (8.4-10.2); Carbon Dioxide 29 mmol/L (22-32); Chloride 103 mmol/L (98-107); Cholesterol 163 mg/dL (140-199); Estimated Glomerular Filt Rate 59 mL/min (>60); Glucose 92 mg/dL (80-110); HDL Cholesterol 56 mg/dL (40-60); HEMOLYSIS < 15 (0-50); LDL Cholesterol Calculated 78 mg/dL (<100); Sodium 136 mmol/L (137-145); Total Protein 7.2 g/dL (6.3-8.2); Triglycerides 147 mg/dL (35-150)
[2023-04-11 11:09] LABS: Potassium 5.6 mmol/L (3.4-5.1)
[2023-04-11 11:14] LABS: Creatinine Urine Random 137.7 mg/dL
[2023-04-11 11:18] LABS: Microalbumi Creatinin Ratio Ur 6.5 ug/mg CR (<30); Microalbumin Urine Random 0.9 mg/dL (0-1.6)
== END ==
PROVIDERS: Family Provider Family Medicine; PCP Family Medicine; Referring Provider Family Medicine; Visit Provider Family Medicine
DX: I10 Essential (primary) hypertension (principal); E78.49 Other hyperlipidemia; R79.89 Other specified abnormal findings of blood chemistry
CPT/HCPCS: 36415; 80053; 80061; 82043; 82570

== ENCOUNTER → 2024-03-01 12:00 | Outpatient (CLI) | payer OTHER, SELFPAY ==
[2020-03-19 15:22] VITALS: BMI 26.6
== END ==
PROVIDERS: Family Provider Family Medicine; PCP Family Medicine; Visit Provider Nurse Practitioner Family
DX: R30.0 Dysuria (principal); R35.0 Frequency of micturition
CPT/HCPCS: 87086; 87210

== ENCOUNTER → 2024-03-05 10:17 | Outpatient (CLI) | payer OTHER, SELFPAY ==
[2020-03-19 15:22] VITALS: BMI 26.6
[2024-03-05 11:55] LABS: Appearance Urine UA CLEAR; Bilirubin Urine UA NEGATIVE (NEGATIVE); Color Urine UA YELLOW; Glucose Urine UA NEGATIVE (Negative); Ketones Urine UA NEGATIVE (NEGATIVE); Leukocyte Esterase Urine UA TRACE (NEGATIVE); Nitrite Urine UA NEGATIVE (Negative); Occult Blood Urine UA NEGATIVE (Negative); Protein Urine UA NEGATIVE (Negative); Specific Gravity Urine UA <=1.005 (1.000-1.035); Urobilinogen Urine UA 0.2 E.U./dL (0.2)
[2024-03-05 12:00] LABS: Urine Volume 10mL (spun)
[2024-03-05 12:01] LABS: Bacteria Urine None Seen; Culture Indicated Urine Cult Not Indicated; RBC Urine None Seen (0-5/HPF); Squamous Epithelial Cell Urine None Seen (0-5/HPF); WBC Urine 0-1/HPF (0-5/HPF)
[2024-03-05 12:16] LABS: BUN Creatinine Ratio 18.8 (6-22); Blood Urea Nitrogen 16 mg/dL (7-17); Carbon Dioxide 30 mmol/L (22-32); Chloride 103 mmol/L (98-107); Cholesterol 246 mg/dL (140-199); Estimated Glomerular Filt Rate > 60 mL/min (>60); Glucose 90 mg/dL (80-110); HDL Cholesterol 87 mg/dL (40-60); HEMOLYSIS < 15 (0-50); LDL Cholesterol Calculated 132 mg/dL (<100); Potassium 5.2 mmol/L (3.4-5.1); Sodium 140 mmol/L (137-145); Triglycerides 135 mg/dL (35-150)
[2024-03-05 12:22] LABS: High Sensitivity CRP - Cardiac 2.9 mg/L (1.0-3.0)
[2024-03-05 12:27] LABS: Creatinine Urine Random 14.17 mg/dL; Protein (Total) Urine Random 11 mg/dL (0-12); Protein Creatinine Ratio Urine 0.77 GRAM/24H
== END ==
PROVIDERS: Family Provider Family Medicine; PCP Family Medicine; Referring Provider Family Medicine; Visit Provider Family Medicine
DX: E78.49 Other hyperlipidemia (principal); R73.03 Prediabetes; I10 Essential (primary) hypertension
CPT/HCPCS: 36415; 80048; 80061; 81001; 82570; 84156; 86140

== ENCOUNTER → 2024-08-30 10:05 | Outpatient (CLI) | payer OTHER, SELFPAY ==
[2024-08-30 09:58] VITALS: BMI 26.6
--- NOTE | 2024-08-30 10:06 | DI.RAD.S_ITS ---
PROCEDURE: XR CHEST 2V INDICATIONS: Dyspnea on exertion, chest pain TECHNIQUE: 2 views of the chest were acquired. COMPARISON: Located Within [facility], CR, XR CHEST 2V, 11/10/2021, 11:34. Located Within [facility], CR, XR CHEST 2V, 02/25/2020, 11:24. FINDINGS: Surgical changes and devices: None. Lungs and pleura: Lungs are clear. No pleural effusions or pneumothorax. Mediastinum: Mediastinal contours are normal. Heart size is normal. Bones and chest wall: No suspicious bony abnormalities. Soft tissues appear unremarkable. IMPRESSION: No acute cardiopulmonary abnormality is seen. Dictated by: Sagar Sandhu M.D. on 08/30/2024 at 10:43 Approved by: Sagar Sandhu M.D. on 08/30/2024 at 10:44
[2024-08-30 10:53] LABS: Add Manual Diff / Slide Review NO; Basophils Absolute Auto 0 /uL (0-100); Basophils Percent Auto 0.6 % (0-2); Eosinophils Absolute Auto 600 /uL (0-450); Eosinophils Percent Auto 11.8 % (2-4); Hematocrit 39.2 % (36-46); Hemoglobin 12.9 g/dL (12.0-16.0); Lymphocytes Absolute Auto 1500 /uL (1100-4500); Lymphocytes Percent Auto 27.6 % (25-40); Mean Corpuscular HGB Conc 32.9 % (30-36); Mean Corpuscular Hemoglobin 31.9 PG (26-34); Mean Corpuscular Volume 96.9 fL (80-100); Monocytes Absolute Auto 500 /uL (0-900); Monocytes Percent Auto 9.5 % (3-14); Neutrophils Absolute Auto 2800 /uL (1500-7000); Neutrophils Percent Auto 50.5 % (50-75); Platelet Count 222 X10^3/uL (150-400); Red Blood Cell Count 4.05 X10^6/uL (4.0-5.2); Red Cell Distribution Width 13.6 % (11.6-14.8); White Blood Cell Count 5.5 X10^3/uL (4.5-11.0)
[2024-08-30 11:20] LABS: Alanine Aminotransferase 19 IU/L (<35); Albumin 4.5 g/dL (3.5-5.0); Albumin Globulin Ratio 1.5 (1.0-2.8); Alkaline Phosphatase 54 U/L (38-126); Aspartate Aminotransferase 34 IU/L (14-36); Bilirubin Total 0.6 mg/dL (0.2-1.3); Blood Urea Nitrogen 26 mg/dL (7-17); Carbon Dioxide 29 mmol/L (22-32); Chloride 102 mmol/L (98-107); Estimated Glomerular Filt Rate > 60 mL/min (>60); Glucose 90 mg/dL (80-110); HEMOLYSIS < 15 (0-50); Potassium 4.9 mmol/L (3.4-5.1); Sodium 138 mmol/L (137-145); Total Protein 7.5 g/dL (6.3-8.2)
[2024-08-30 11:25] LABS: NT-proBNP (BNP-Adult 18+) 215 pg/mL (<450)
== END ==
PROVIDERS: Family Provider Family Medicine; PCP Family Medicine; Referring Provider Physician Assistant; Visit Provider Physician Assistant
DX: R07.9 Chest pain, unspecified (principal); R06.09 Other forms of dyspnea; R01.1 Cardiac murmur, unspecified
CPT/HCPCS: 36415; 71046; 80053; 83880; 85025; 93005

== ENCOUNTER 2024-09-01 09:13 | Emergency (ER) | payer OTHER, SELFPAY ==
[2024-08-30 09:58] VITALS: BMI 26.6
[2024-09-01] VITALS (11 sets, daily range): BP systolic 118–150; BP diastolic 54–71; PULSE 58–67; RESP 16–20; TEMP 36.4; O2SAT 94–100; BMI 23.3
--- NOTE | 2024-09-01 10:07 | PC.NURSE ---
Pt reports 5 weeks of SOB; pt has been using OTC mist every 10-15 minutes. Pt then saw PA who did labs, chest xray. Pt reported to get prescription of albuterol inhaler and states she has been using that frequently with no relief. Dry cough. Chest xray was reported to look good on Pt had echo done with no relief.
[2024-09-01] MEDS: ALBUTEROL/IPRATROPIUM 3 ML AMPUL INH (10:22)
--- NOTE | 2024-09-01 10:45 | ED.SOB ---
HPI - SOB/Dyspnea General Chief Complaint: Shortness of Breath/Dyspnea Stated Complaint: Sent from PCP to get lungs checked Time Seen by Provider: 09/01/24 10:20 Source: patient and RN notes reviewed Limitations: no limitations History of Present Illness HPI Narrative: 83-year-old female history of dyslipidemia sent over from PCP office for evaluation of potential pulmonary embolism after presenting with cough and shortness of breath over the last 5 weeks to PCP office placed on Lasix in the last few days with no significant relief of her symptoms. Patient denies fever, chills, trauma, shortness of breath, and dyspnea on exertion, leg pain, or swelling, or history of any DVT PD or any cancer history and is a nonsmoker. Other than what is stated 14 point review of system is negative Related Data Previous Rx's Medication Instructions Recorded atorvastatin 80 mg tablet 80 mg PO DAILY #90 tabs 01/24/24 albuterol sulfate 90 mcg/actuation 2 puff inhalation Q4-6H PRN 08/30/24 aerosol inhaler shortness of breath or wheezing #8.5 grams fluticasone propionate 44 2 puff inhalation BID #10.6 grams 08/30/24 mcg/actuation HFA aerosol inhaler furosemide 20 mg tablet 20 mg PO DAILY #30 tabs 08/30/24 inhalational spacing device #1 ea 08/30/24 (BreatheRite MDI Spacer) prednisone 20 mg tablet 20 mg PO DAILY #5 tabs 09/01/24 Allergies Allergy/AdvReac Type Severity Reaction Status Date / Time No Known Drug Allergies Allergy Verified 09/01/24 09:32 Review of Systems Review of Systems ROS Unobtainable: All systems reviewed & are unremarkable except as noted in HPI and below Patient History Medical History Depression Anxiety as acute reaction to exceptional stress Postherpetic neuralgia Ocular herpes zoster Shingles Elevated LFTs Essential hypertension Brain TIA (~2019) Gastritis Pain in posterior right lower extremity Borderline 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) Pneumonia Upper respiratory infection Surgical History H/O left wrist surgery Status post cholecystectomy Status post appendectomy Social History household members: spouse Smoking Status: Never smoker alcohol intake: former Smoking Status: Never smoker alcohol intake frequency: 0-2 drinks per day Exam Narrative Exam Narrative: GENERAL: [83] year old patient appears stated age. Well-developed patient, in mild distress. HEAD: Atraumatic. Normocephalic. EYES: Pupils equal round and reactive. Extraocular motions intact. No scleral icterus. No injection or drainage. ENT: Nose without bleeding, purulent drainage. Throat without erythema, tonsillar hypertrophy or exudate. Airway patent. NECK: Trachea midline. Non tender CARDIOVASCULAR: Regular rate and rhythm without murmurs, gallops, or rubs. RESPIRATORY: Clear to auscultation. Breath sounds equal bilaterally. No wheezes, rales, or rhonchi. GASTROINTESTINAL: Abdomen soft, non-tender, nondistended. EXTREMITIES: No edema or joint tenderness. BACK: Nontender without deformity or crepitance. No flank tenderness. NEURO: AOx3. SKIN: No rash or erythema of visible areas Initial Vital Signs Initial Vital Signs: Vital Signs Temperature 97.5 F L 09/01/24 09:29 Pulse Rate 67 09/01/24 09:29 Respiratory Rate 17 09/01/24 09:29 Blood Pressure 122/54 L 09/01/24 09:29 Pulse Oximetry 98 09/01/24 09:29 Oxygen Delivery Method Room Air 09/01/24 09:29 Course Orders Ordered: ED Orders 09/01/24 10:03 RT Consult Eval and Treat NOW 09/01/24 11:13 Covid-19 + FLU A/B + RSV - PCR Stat 09/01/24 11:30 D Dimer Stat 09/01/24 11:56 CT angio chest PE protocol Stat Discontinued Medications Albuterol/Ipratropium (Albuterol/Ipratropium 3 Ml Ampul) 3 ml INH NOW ONE Stop: 09/01/24 10:21 Last Admin: 09/01/24 10:22 Dose: 3 ml Documented By: CARMELA Vital Signs Vital signs: Vital Signs - 8 hr 09/01/24 09:29 09/01/24 10:05 09/01/24 10:05 Temperature 97.5 F L Pulse Rate 67 63 Respiratory Rate 17 Blood Pressure 122/54 L 150/70 H Pulse Oximetry 98 96 Oxygen Delivery Method Room Air Oxygen Flow Rate Fraction of Inspired Oxygen 09/01/24 10:22 09/01/24 10:30 09/01/24 10:31 Temperature Pulse Rate 58 L 60 Respiratory Rate 18 Blood Pressure 118/63 Pulse Oximetry 99 100 Oxygen Delivery Method Room Air Oxygen Flow Rate 0 Fraction of Inspired Oxygen 21 09/01/24 10:31 09/01/24 11:00 09/01/24 11:00 Temperature Pulse Rate 60 59 L Respiratory Rate 16 Blood Pressure 123/58 L Pulse Oximetry 100 94 Oxygen Delivery Method Oxygen Flow Rate Fraction of Inspired Oxygen 09/01/24 11:30 09/01/24 11:44 09/01/24 11:44 Temperature Pulse Rate 60 63 Respiratory Rate Blood Pressure 136/64 Pulse Oximetry 95 95 Oxygen Delivery Method Oxygen Flow Rate Fraction of Inspired Oxygen 09/01/24 12:00 09/01/24 12:00 09/01/24 13:00 Temperature Pulse Rate 60 62 Respiratory Rate 16 20 Blood Pressure 150/71 H Pulse Oximetry 95 96 Oxygen Delivery Method Oxygen Flow Rate Fraction of Inspired Oxygen 09/01/24 14:32 Temperature Pulse Rate 61 Respiratory Rate 16 Blood Pressure 145/70 H Pulse Oximetry 94 Oxygen Delivery Method Room Air Oxygen Flow Rate Fraction of Inspired Oxygen MDM - SOB/Dyspnea Lab Data Labs: Lab Results 09/01/24 09/01/24 Range/Units 11:13 11:30 D-Dimer 966 H (<500) ng/ml SARS-CoV-2 (PCR) Negative (Negative) Influenza A (RT-PCR) Flu a negative (NEGATIVE) Influenza B (RT-PCR) Flu b negative (NEGATIVE) RSV (PCR) Negative (Negative) Imaging Data CT scan - chest: Radiologist's Impression: [place] [address] CT Scan Report Signed Patient: Jennifer Chaudhry MR#: [id number] : 1940 Acct:[id number] Age/Sex: 83 / F Date of Service: 09/01/24 Loc: ED Accession Number: [id number] Procedure: CT angio chest PE protocol Ordering Provider: Gerardo Prather D.O. PROCEDURE: CT ANGIO CHEST PE PROTOCOL INDICATIONS: chest pain sob elevated dimer TECHNIQUE: After the administration of intravenous contrast, 2 mm thick sections acquired from the pulmonary apices to the posterior costophrenic angles. MIP reformats of the arterial vasculature were utilized. For radiation dose reduction, the following was used: automated exposure control, adjustment of mA and/or kV according to patient size. COMPARISON: None. FINDINGS: Pulmonary arteries: Pulmonary arteries are normal in size, and demonstrate no intraluminal filling defects to suggest central pulmonary embolism. Lower Neck: No enlarged lymph nodes. Thyroid: No thyroid nodules which require sonographic follow up, per consensus guidelines. Axillae: No enlarged lymph nodes. Chest Wall: Unremarkable. Bones: Unremarkable. Lungs and Pleura: No pneumothorax or pleural effusions. No consolidation or suspicious nodules. Heart: Heart size is normal. No pericardial effusion. Thoracic Vessels: No aortic aneurysm. Mediastinum and Joyce: No enlarged lymph nodes. Esophagus: No wall thickening. No hiatal hernia. Upper Abdomen: Visualized upper abdomen solid organs and bowel loops appear normal. IMPRESSION: No pulmonary embolus. No acute cardiopulmonary process. MDM Narrative Medical decision making narrative: All lab work, CT scan, chest x-ray, vital signs, medical records, medication list, nurse triage note, and all previous visits reviewed. Patient given DuoNeb here. Patient is already on albuterol inhaler and Lasix. Differential diagnosis include PE DVT STEMI NSTEMI CHF COPD pneumonia asthmatic bronchitis. DC home on Medrol Dosepak and follow up with PCP in 1 week. Return with new or worsening symptoms Discharge Plan Departure Patient Disposition: Home Clinical Impression: Elevated d-dimer, Acute dyspnea Instructions: DI for Shortness of Breath Activity Restrictions/Additional Instructions: Return with new or worsening symptoms. Take your medicines as directed follow up with PCP in 1 week Prescriptions: New prednisone 20 mg tablet 20 mg PO DAILY Qty: 5 0RF No Action atorvastatin 80 mg tablet 80 mg PO DAILY Qty: 90 3RF furosemide 20 mg tablet 20 mg PO DAILY Qty: 30 0RF Rx Instructions: Take one tablet once daily fluticasone propionate 44 mcg/actuation HFA aerosol inhaler 2 puff inhalation BID Qty: 10.6 1RF Rx Instructions: Inhale 2 puffs (after using Albuterol), using spacer, twice daily. Rinse mouth out well after use albuterol sulfate 90 mcg/actuation HFA aerosol inhaler 2 puff inhalation Q4-6H PRN (Reason: shortness of breath or wheezing) Qty: 8.5 0RF Rx Instructions: Inhale 2 puffs using spacer every 4-6 hours as needed (DME) BreatheRite MDI Spacer Spacer See Rx Instructions .Route Qty: 1 0RF Rx Instructions: As directed Referrals: Madhuri Pacsual DO [Primary Care Provider] - Stand Alone Forms: Patient Portal/API/Survey
[2024-09-01 11:46] LABS: D Dimer 966 ng/ml (<500)
--- NOTE | 2024-09-01 11:56 | DI.CT.S_ITS ---
PROCEDURE: CT ANGIO CHEST PE PROTOCOL INDICATIONS: chest pain sob elevated dimer TECHNIQUE: After the administration of intravenous contrast, 2 mm thick sections acquired from the pulmonary apices to the posterior costophrenic angles. MIP reformats of the arterial vasculature were utilized. For radiation dose reduction, the following was used: automated exposure control, adjustment of mA and/or kV according to patient size. COMPARISON: None. FINDINGS: Pulmonary arteries: Pulmonary arteries are normal in size, and demonstrate no intraluminal filling defects to suggest central pulmonary embolism. Lower Neck: No enlarged lymph nodes. Thyroid: No thyroid nodules which require sonographic follow up, per consensus guidelines. Axillae: No enlarged lymph nodes. Chest Wall: Unremarkable. Bones: Unremarkable. Lungs and Pleura: No pneumothorax or pleural effusions. No consolidation or suspicious nodules. Heart: Heart size is normal. No pericardial effusion. Thoracic Vessels: No aortic aneurysm. Mediastinum and Joyce: No enlarged lymph nodes. Esophagus: No wall thickening. No hiatal hernia. Upper Abdomen: Visualized upper abdomen solid organs and bowel loops appear normal. IMPRESSION: No pulmonary embolus. No acute cardiopulmonary process. Approved by: Sedrick Magallon M.D. on 09/01/2024 at 13:31
[2024-09-01 12:12] LABS: Influenza A - CEPHEID Flu A NEGATIVE (NEGATIVE); Influenza B - CEPHEID Flu B NEGATIVE (NEGATIVE); Respiratory Syncytial Virus Negative (Negative)
[2024-09-01 12:15] LABS: COVID-19 CEPHEID 4-PLEX PCR Negative (Negative)
== END 2024-09-01 15:09 | disposition home or self-care (01) ==
PROVIDERS: Emergency Provider Family Medicine; Family Provider Family Medicine; PCP Family Medicine
DX: R06.00 Dyspnea, unspecified (principal); R07.9 Chest pain, unspecified; R79.89 Other specified abnormal findings of blood chemistry
CPT/HCPCS: 0241U; 71275; 85379; 94640; 99283; 99284; Q9967

== ENCOUNTER → 2024-09-12 06:45 | Outpatient (CLI) | payer OTHER, SELFPAY ==
[2024-08-30 09:58] VITALS: BMI 26.6
--- NOTE | 2024-09-12 06:46 | DI.ECHO.S_ITS ---
[facility]---------+ [facility] : : [address] : : [place] : : [id number] : : Phone: [phone] Echocardiogram Report + + :Name: CHAD MCCRAY Study Date: 09/12/2024 Height: 65 in : :Hospital ReadingLocation: Weight: 140 lb : : Gender: Female BSA: 1.7 m2 : :: 1940 Age: 83 yrs BP: 108/64 mmHg: :Reason For Study: WARREN, CHEST PAIN : :Ordering Physician: LARY, : :JOSEPH Bai Performed By: Panfilo Hutchison : :Referring: JOSEPH BARTH : + + Interpretation Summary The ejection fraction is estimated to be 65-70%. Diastolic parameters suggest probable normal left ventricular diastolic function and normal filling pressures. The right ventricle is normal in size and function. There is moderate to severe aortic stenosis. Pulmonary artery pressures cannot be estimated because of the lack of a measurable TR jet velocity but the IVC suggests a CVP of around 3 mmHg. Compared to the prior study 06/03/2019, aortic valve gradient has increased. Procedure: A two-dimensional transthoracic echocardiogram with color flow and Doppler was performed. The study quality was technically good. Comparison is made with the echocardiogram of 06/03/2019. The patient was in normal sinus rhythm during the exam. Left Ventricle: The left ventricle is normal in size. There is normal left ventricular wall thickness. There is no ventricular septal defect visualized. The ejection fraction is estimated to be 65-70%. There are no focal wall motion abnormalities. Diastolic parameters suggest probable normal left ventricular diastolic function and normal filling pressures. Right Ventricle: The right ventricle is normal in size and function. Atria: The left atrial size is normal. Right atrial size is normal. There is no Doppler evidence for an interatrial shunt. Mitral Valve: There is mild mitral annular calcification. The mitral valve leaflets appear mildly thickened, but open well. There is trace mitral regurgitation. Aortic Valve: The aortic valve is moderately calcified. There is moderate to severe aortic stenosis. The peak aortic velocity is 4.0 m/sec. The aortic valve mean gradient is 41 mmHg. The calculated aortic valve area is 0.7 cm2. The dimensionless index is 0.27. There is trace aortic regurgitation. Tricuspid Valve: The tricuspid valve leaflets are thin and pliable. There is mild tricuspid regurgitation. Pulmonary artery pressures cannot be estimated because of the lack of a measurable TR jet velocity but the IVC suggests a CVP of around 3 mmHg. Pulmonic Valve: The pulmonic valve is not well visualized. There is trace pulmonic regurgitation. Great Vessels: The aortic root is normal size. The dimensions of the ascending aorta are normal. The pulmonary is not well visualized. The IVC is of normal diameter and collapses greater than 50% with a sniff. This suggests a low right atrial pressure of 3 mm Hg. Pericardium/ Pleura There is no pericardial effusion. There is no pleural effusion. MMode/2D Measurements & Calculations LVIDd: 4.4 cm LVOT diam: 1.8 cm LVIDs: 1.9 cm Ao root diam: 2.6 cm FS: 57.1 % EPSS: 0.42 cm IVSd: 0.96 cm LVPWd: 1.1 cm LV philip. diameter/BSA (cm/m^2): 2.6 LV sys. diameter/BSA (cm/m^2): 1.1 LA A2 area: 17.9 cm2 RA long axis: 3.8 cm LA A4 area: 17.9 cm2 RA area: 9.9 cm2 LA length (vol): 5.0 cm RA vol: 21.8 ml LA vol: 55.0 ml RA : 12.8 ml/m2 LA vol index: 32.3 ml/m2 IVC diam: 1.2 cm RVD1 (basal): 3.4 cm RVD2 (mid): 2.9 cm TAPSE: 2.0 cm Doppler Measurements & Calculations Ao V2 max: 399.5 cm/sec LVOT Max [place]: 110.3 cm/sec Ao V2 mean: 303.9 cm/sec LV V1 max P.9 mmHg Ao max P.8 mmHg LV V1 VTI: 29.3 cm Ao mean P.7 mmHg KEL(I,D): 0.73 cm2 Ao V2 VTI: 106.4 cm KEL(V,D): 0.73 cm2 sev ratio: 0.28 KEL indexed to BSA (cm^2/m^2): 0.43 MV E max glenroy: 59.5 cm/sec TR max glenroy: 253.0 cm/sec MV A max glenroy: 81.0 cm/sec TR max P.6 mmHg MV E/A: 0.74 PA V2 max: 85.8 cm/sec Med Peak E' [place]: 5.8 cm/sec PA V2 mean: 65.3 cm/sec E/E' med: 10.2 PA mean P.8 mmHg Lat Peak E' [place]: 6.2 cm/sec PA pr([employer]): 53.3 mmHg E/E' lat: 9.6 E/e' average: 9.9 MV dec time: 0.24 sec SV([facility]): 77.3 ml Reading Physician:01:[id number] PM
== END ==
PROVIDERS: Family Provider Family Medicine; PCP Family Medicine; Referring Provider Physician Assistant; Visit Provider Physician Assistant
DX: I08.2 Rheumatic disorders of both aortic and tricuspid valves (principal); R07.9 Chest pain, unspecified; R01.1 Cardiac murmur, unspecified; R06.09 Other forms of dyspnea
CPT/HCPCS: 93306

== ENCOUNTER → 2024-11-28 10:07 | Outpatient (CLI) | payer OTHER, SELFPAY ==
[2024-08-30 09:58] VITALS: BMI 26.6
--- NOTE | 2024-11-28 10:09 | DI.RAD.S_ITS ---
PROCEDURE: XR HIP W PEL IF DONE BILAT 2V INDICATIONS: Right hip pain - suspect osteoarthritis TECHNIQUE: AP pelvis with lateral view(s) of the bilateral hip(s). COMPARISON: [facility], , XR HIP W PEL IF DONE RT 2V, 12/25/2020, 11:53. FINDINGS: Bones: No fractures or dislocations. Pelvic ring appears intact. No suspicious bony lesions. Nonuniform joint space narrowing and osteophytic lipping of the acetabuli. Subchondral cystic change without bony deformity. Soft tissues: The visualized bowel gas pattern is normal. No suspicious soft tissue calcifications. IMPRESSION: Moderate bilateral hip osteoarthritis, right greater than left. Findings have progressed from 2020. Kellgren-Benny Grade 3. Dictated by: Octavio Richter M.D. on 11/28/2024 at 14:55 Approved by: Octavio Richter M.D. on 11/28/2024 at 14:56
== END ==
PROVIDERS: Family Provider Family Medicine; PCP Family Medicine; Referring Provider Physician Assistant; Visit Provider Physician Assistant
DX: M16.0 Bilateral primary osteoarthritis of hip (principal); M25.551 Pain in right hip
CPT/HCPCS: 73521

== ENCOUNTER → 2024-12-14 09:47 | Outpatient (CLI) | payer OTHER, SELFPAY ==
[2024-08-30 09:58] VITALS: BMI 26.6
--- NOTE | 2024-12-14 09:49 | DI.RAD.S_ITS ---
PROCEDURE: XR FOOT LT 2V INDICATIONS: dorsal pain x4 weeks, hurts with each step TECHNIQUE: 2 views of the foot were acquired. COMPARISON: None. FINDINGS: Bones: No fractures or dislocations. Moderate to severe osteoarthritic changes are noted throughout left foot most notably involving 2nd through 4th TMT joints. Well-defined plantar and dorsal calcaneal enthesophytes are seen. No suspicious bony lesions. Soft tissues: No tibiotalar joint effusion. Achilles tendon appears normal. IMPRESSION: No acute left foot fracture or dislocation. Moderate to severe left foot osteoarthritic changes as above. Calcaneal enthesophytes. Dictated by: Adrián Finn M.D. on 12/14/2024 at 11:20 Approved by: Adrián Finn M.D. on 12/14/2024 at 11:20
== END ==
LOC: RAD 09:49
PROVIDERS: Family Provider Family Medicine; PCP Family Medicine; Referring Provider Family Medicine; Visit Provider Family Medicine
DX: M79.672 Pain in left foot (principal); M77.32 Calcaneal spur, left foot
CPT/HCPCS: 73620